=== PATIENT | female | born 1955 | race Caucasian/White ===

== ENCOUNTER 2017-05-24 18:13 | Emergency (ER) | payer MEDICARE ==
[~2017-05-24] VITALS: Ht 154.9 cm; Wt 84.1 kg
[~2017-05-24 18:13] MED LIST: /ADVA50050 IN; /CELE20CA OR; /MOXI40TA PO; /PANT40TA PO; /PRAV20TA PO; ACET50TA PO; ACET650S3 PO; ALBU0.5N NEB; ALBU20IN INH; ALBUTEROL; ASPI325T5 PO; ASPI81TA85 PO; ATOR40TA75 PO; ATOR80TA14 PO; ATROVENT; BAYE325T12 PO; BISAC5TA PO; BREO1INH INH; CELE20TA OR; COMBIN INH; COMBVENT INH; CRES20TA OR; DELTASONE PO; DUONSOL IN; ECOT325T5 OR; GLUCTAB PO; HYDR25TA6 OR; IPRA2IN INH; LEVA750T7 PO; LIPI80TA PO; LISI20TA3 PO; LISI20TA5 OR; METF-415 PO; MIRALAX PO; NICO14DI3 TD; NICO21DI4 TD; NICO21PAT EXT; OMEP20TA7 OR; PLAV1TAB2 PO; POTA20TA4 PO; POTA75TA PO; PRED10TA PO; PRED10TA2 PO; PRED20TA PO; PROAAER10 INH; TYLE325T5 PO; VITA200016 PO; VITA200019 PO; ZEST20TA8 PO; ZITH250T PO; ZYRT10CA PO
[2017-05-24] MEDS ORDERED: SYNT88TA2 PO (18:28)
[2017-05-24] MEDS ORDERED: MICR10CA PO (18:28)
[2017-05-24] MEDS ORDERED: LISI20TA3 PO (18:28)
[2017-05-24] MEDS ORDERED: CITA20TA4 PO (18:28)
[2017-05-24] MEDS ORDERED: METF500T13 PO (18:28)
[2017-05-24] MEDS ORDERED: OMEP20CA3 PO (18:28)
[2017-05-24] MEDS ORDERED: K-TA1TAB PO (18:28)
[2017-05-24] MEDS ORDERED: ONDANSETRON 4MG/2ML VIAL (J2405) IV ONE (20:15)
[2017-05-24] MEDS ORDERED: MORPHINE 4 MG/ML 1ML SYRINGE IV PRN (20:15)
[2017-05-24] MEDS ORDERED: NS 1,000 ML IV ONE ×2 (20:15→21:30)
[2017-05-24 20:53] LABS: BASO # 0.1 K/mm3 (0.0-0.2); BASO % 0.7 % (0.0-1.0); EOS # 0.4 K/mm3 (0.0-0.50); EOS % 2.8 % (0.0-3.0); LARGE UNSTAINED CELL # 0.1 K/mm3 (0.0-0.4); LARGE UNSTAINED CELL % 0.9 % (0.0-4.0); LYMPH # 3.2 K/mm3 (1.5-4.5); LYMPH % 21.8 % (24.0-44.0); MEAN CORPUSCULAR HEMOGLOBIN 28.7 pg (27.0-33.0); MEAN CORPUSCULAR HGB CONC 32.9 g/dl (32.0-36.5); MONO # 0.9 K/mm3 (0.0-0.8); MONO % 6.5 % (0.0-5.0); NEUTROPHILS # 9.5 K/mm3 (1.8-7.7); NEUTROPHILS % 67.3 % (36.0-66.0); PLATELET COUNT, AUTOMATED 315 k/mm3 (150-450); RED CELL DISTRIBUTION WIDTH 13.4 % (11.5-14.5)
[2017-05-24 21:09] LABS: ALBUMIN 3.8 GM/DL (3.2-5.2); ALBUMIN/GLOBULIN RATIO 1.06 (1.00-1.93); ALKALINE PHOSPHATASE 124 U/L (45-117); ALT/SGPT 25 U/L (12-78); ANION GAP 12 MEQ/L (8-16); AST/SGOT 15 U/L (15-37); BILIRUBIN,DIRECT < 0.1 MG/DL (0.0-0.2); BILIRUBIN,TOTAL 0.4 MG/DL (0.2-1.0); BLOOD UREA NITROGEN 17 MG/DL (7-18); CALCIUM LEVEL 9.6 MG/DL (8.8-10.2); CARBON DIOXIDE LEVEL 24 MEQ/L (21-32); CHLORIDE LEVEL 108 MEQ/L (98-107); CREATININE FOR GFR 0.83 MG/DL (0.55-1.02); GLOMERULAR FILTRATION RATE > 60.0 (>45); GLUCOSE, FASTING 95 MG/DL (80-110); POTASSIUM SERUM 4.4 MEQ/L (3.5-5.1); SODIUM LEVEL 144 MEQ/L (136-145); TOTAL PROTEIN 7.4 GM/DL (6.4-8.2)
[2017-05-24] MEDS ORDERED: ISOVUE-370 76% 100ML VIAL (Q9967) As Ordered ONE (22:13)
--- NOTE | 2017-05-24 22:50 | REPUSA ---
CT of the abdomen and pelvis with contrast Clinical statement: Pain. Technique: Multiple axial CT images were obtained from the base of the lungs through the floor of the pelvis utilizing 5 mm axial slices after administration of nonionic intravenous contrast. Coronal an d sagittal reconstructions were also obtained. Comparison: 01/17/2016. Findings: Chest: The visualized lung bases are clear. Abdomen: The liver, spleen, pancreas, kidneys, gallbladder, and adrenal glands are unremarkable. The aorta demonstrates moderate atherosclerotic calcifications, without evidence of aneurysm or dissectio n. The aortoiliac stent graft is patent. There is no evidence of abdominal lymphadenopathy or ascites . Pelvis: The bowel is unremarkable, with no obstructive or inflammatory changes. The urinary bladder i s within normal limits. The other pelvic structures appear grossly intact. There is no evidence of pe lvic lymphadenopathy or ascites. Bones: There are no suspicious osseous abnormalities seen. Impression: No acute abnormality to explain the patient's pain. Stable examination.
[2017-05-24] MEDS ORDERED: CIPR-249 PO (23:19)
[2017-05-24] MEDS ORDERED: FLAG500T PO (23:19)
[2017-05-24] MEDS ORDERED: ZOFR4TAB3 PO (23:21)
[2017-05-24] MEDS ORDERED: CIPROFLOXACIN 500 MG TAB PO ONE (23:30)
[2017-05-24] MEDS ORDERED: metroNIDAZOLE (FLAGYL) 500 MG TAB PO ONE (23:30)
[2017-05-24] MEDS ORDERED: OXYCODONE/APAP 5MG/325MG(BULK FOR ED) 1 TABLET PO ONE (23:30)
[2017-05-24 23:32] VITALS: BP 119/75
== END 2017-05-24 23:57 | disposition home or self-care (01) ==
LOC: M ED 18:13
DX: K52.9 Noninfective gastroenteritis and colitis, unspecified (principal); F17.210 Nicotine dependence, cigarettes, uncomplicated; Z79.84 Long term (current) use of oral hypoglycemic drugs; Z79.82 Long term (current) use of aspirin; Z79.899 Other long term (current) drug therapy; Z87.19 Personal history of other diseases of the digestive system

== ENCOUNTER 2017-05-25 20:12 | Inpatient (IN) | payer MEDICARE ==
[~2017-05-25] VITALS: Ht 154.9 cm; Wt 84.1 kg
[~2017-05-25 20:12] MED LIST changes: +CIPR-249 PO; +CITA20TA4 PO; +FLAG500T PO; +K-TA1TAB PO; +METF500T13 PO; +MICR10CA PO; +OMEP20CA3 PO; +SYNT88TA2 PO; +ZOFR4TAB3 PO
[2017-05-25] MEDS ORDERED: MORPHINE 4 MG/ML 1ML SYRINGE IV PRN (20:45)
[2017-05-25] MEDS ORDERED: ONDANSETRON 4MG/2ML VIAL (J2405) IV ONE (20:45)
[2017-05-25] MEDS ORDERED: NS 1,000 ML IV ONE (20:45)
[2017-05-25 21:17] LABS: BASO # 0.1 K/mm3 (0.0-0.2); BASO % 0.7 % (0.0-1.0); EOS # 0.2 K/mm3 (0.0-0.50); EOS % 1.9 % (0.0-3.0); LARGE UNSTAINED CELL # 0.2 K/mm3 (0.0-0.4); LARGE UNSTAINED CELL % 1.8 % (0.0-4.0); LYMPH # 2.5 K/mm3 (1.5-4.5); MEAN CORPUSCULAR HEMOGLOBIN 29.8 pg (27.0-33.0); MEAN CORPUSCULAR HGB CONC 35.1 g/dl (32.0-36.5); MEAN CORPUSCULAR VOLUME 84.9 fl (80.0-96.0); MONO # 0.8 K/mm3 (0.0-0.8); MONO % 7.9 % (0.0-5.0); NEUTROPHILS % 61.8 % (36.0-66.0); PLATELET COUNT, AUTOMATED 293 k/mm3 (150-450); WHITE BLOOD COUNT 9.7 K/mm3 (4.0-10.0)
[2017-05-25 21:44] LABS: ALBUMIN 3.7 GM/DL (3.2-5.2); ALBUMIN/GLOBULIN RATIO 1.09 (1.00-1.93); ALKALINE PHOSPHATASE 108 U/L (45-117); ALT/SGPT 22 U/L (12-78); ANION GAP 8 MEQ/L (8-16); AST/SGOT 14 U/L (15-37); BILIRUBIN,DIRECT 0.1 MG/DL (0.0-0.2); BILIRUBIN,TOTAL 0.5 MG/DL (0.2-1.0); BLOOD UREA NITROGEN 17 MG/DL (7-18); CALCIUM LEVEL 9.1 MG/DL (8.8-10.2); CARBON DIOXIDE LEVEL 28 MEQ/L (21-32); CHLORIDE LEVEL 106 MEQ/L (98-107); CREATININE FOR GFR 0.69 MG/DL (0.55-1.02); GLOMERULAR FILTRATION RATE > 60.0 (>45); GLUCOSE, FASTING 86 MG/DL (80-110); SODIUM LEVEL 142 MEQ/L (136-145); TOTAL PROTEIN 7.1 GM/DL (6.4-8.2)
[2017-05-25] MEDS ORDERED: ISOVUE-370 76% 100ML VIAL (Q9967) As Ordered ONE (22:25)
[2017-05-26] MEDS ORDERED: ATOR80TA59 PO (00:15)
[2017-05-26] MEDS ORDERED: CETI10TA PO (00:15)
[2017-05-26] MEDS ORDERED: CIPR-249 PO (00:19)
[2017-05-26] MEDS ORDERED: METR1TAB66 PO (00:19)
[2017-05-26] MEDS ORDERED: ZOFR4TAB3 PO (00:19)
[2017-05-26] MEDS ORDERED: COLE1TAB PO (00:19)
[2017-05-26] MEDS ORDERED: MORPHINE 2 MG/ML 1ML SYRINGE IV PRN (00:30)
[2017-05-26] MEDS ORDERED: KETOROLAC 30 MG/ML VIAL (J1885) IV PRN (00:30)
[2017-05-26] MEDS ORDERED: GLUCOSE 4 GM CHEW TABLET PO PRN (00:45)
[2017-05-26] MEDS ORDERED: ACETAMINOPHEN TAB 650MG DOSE (2X325MG) PO PRN (00:45)
[2017-05-26] MEDS ORDERED: GLUCAGON FOR INJ 1 MG VIAL (J1610) SC PRN (00:45)
[2017-05-26] MEDS ORDERED: DEXTROSE 50% 50 ML SYRINGE IV PRN (00:45)
[2017-05-26] MEDS ORDERED: ONDANSETRON 4 MG ORAL DISINTEGRATING TAB (S0181) PO PRN (00:45)
[2017-05-26] MEDS ORDERED: ALBUTEROL 90 MCG/ACT 8GM HFA INHALER INH PRN (00:45)
[2017-05-26] MEDS: HumaLOG INSULIN (NovoLOG) PER UNIT SC SCH ×5 (01:00→17:22)
[2017-05-26] MEDS: NS 1,000 ML IV SCH ×2 (01:49→11:30)
[2017-05-26] MEDS ORDERED: hydroCHLOROthiazide 25 MG TAB PO ONE (02:00)
[2017-05-26 02:10] VITALS: BP 144/66
--- NOTE | 2017-05-26 02:22 | HPEPDOC ---
General Date of Admission May 26, 2017 at 00:06 Primary Care Physician: Jonas Colon Attending Physician: STEFFI TERRY DO Chief Complaint The patient is a 62-year-old female admitted with a reason for visit of Acute Diverticulitis. History of Present Illness Patient is a 62-year-old female with past medical history significant for hypertension, diabetes, dyslipidemia, COPD, depression, common iliac stents presents to the emergency room with abdominal pain and nausea. This all started night. Patient felt soreness on her left side. Cannot get comfortable. Has been getting worse. At times it sharp and dull and achy and other times feels like a "hard pain". The pain is all the time. She has had this before. Feels like the pain when she has diverticulitis. Patient had been put on antibiotics previously. Patient has not tried any ibuprofen or Tylenol. Patient went to the emergency room yesterday. Was recommended the patient stay in the hospital. However patient did not wish to do so and went home. She was given some antibiotics, Cipro and Flagyl. Patient had taken those at home. Noted that overnight the pain got worse. It was only on right side, and now has moved across abdomen. Patient decided come back to the ER today. Patient noted that she felt more nauseous and had an episode of vomiting today. Patient first had a dry heave and then vomited once today. No blood in the vomit. Patient denies diarrhea. Admits to having a bowel movement yesterday. Usually has a bowel movement every day. Denies black or bloody stools. Today the pain seems to have moved over to the right. In the emergency room patient is receiving Zofran and morphine. Patient describes this is helping with the pain and discomfort. Patient admits to still eating and drinking at home. Although not eating as much today. Patient has had a colonoscopy before, was performed in [place]. Admitting patient today on a hospital service. Home Medications Scheduled (Lisinopril/Hydrochlorothi 20-25 mg) 1 Tab Tab, 1 TAB PO DAILY, (Reported) Aspirin (Aspir-81) 81 Mg Tab, 81 MG PO DAILY, (Reported) Atorvastatin Calcium (Atorvastatin Calcium) 80 Mg Tab, 80 MG PO QHS, (Reported) Cetirizine HCl (Cetirizine HCl) 10 Mg Tab, 10 MG PO DAILY, (Reported) Ciprofloxacin HCl (Cipro) 500 Mg Tab, 500 MG PO BID, (Reported) TO END 06/09/17 Citalopram Hydrobromide (Citalopram Hydrobromide) 20 Mg Tab, 20 MG PO DAILY, ( Reported) Clopidogrel Bisulfate (Plavix) 75 Mg Tab, 75 MG PO DAILY, (Reported) Colestipol HCl (Colestipol HCl) 1 Gm Tab, 1 GM PO DAILY, (Reported) Fluticasone/Vilanterol (Breo Ellipta 100-25 Mcg/INH) 1 Inh Inh, 1 PUFF INH DAILY , (Reported) Levothyroxine Sodium (Synthroid) 88 Mcg Tab, 88 MCG PO DAILY, (Reported) Metformin Hydrochloride (Metformin HCl) 500 Mg Tab, 500 MG PO BID, (Reported) holding due to dye from a procedure Metronidazole (Metronidazole) 500 Mg Tab, 500 MG PO Q8H, (Reported) TO END 06/05/17 Omeprazole (Omeprazole) 20 Mg Cap, 20 MG PO DAILY, (Reported) Potassium Chloride (K-Tab) 20 Meq Tab, 20 MEQ PO DAILY, (Reported) Scheduled PRN Albuterol Sulfate (Proair Hfa) 108 Mcg/Act Aer, 2 PUFFS INH Q4H PRN for SHORTNESS OF BREATH, (Reported) Ondansetron (Zofran Odt) 4 Mg Tab, 4 MG PO Q4H PRN for NAUSEA, (Reported) Allergies Coded Allergies: No Known Drug Allergy (Verified Allergy, Unknown, 12/12/12) Past Medical History Medical History Hypertension Diabetes Dyslipidemia COPD Arthritis Depression Surgical History Common iliac stents bilaterally, placed in 2014 Hysterectomy Bunions on feet removed bilaterally Right breast cancer removed Family History Father: , [place] Social History Patient's is a smoker. Smokes 1 pack a day for 45 years. Denies alcohol use. Denies illegal or illicit drugs. Is currently disabled. 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 Disabled due to back pain. Patient is for 40 years. Has a cat at home, named Karuna. Review of Symptoms ENT: Denies: Sinus Congestion Other systems Gen.: No fevers or chills Head: Headache on right side of head this morning, rubbed it and went away. Eyes: Denies vision changes no blurry vision or double vision. Nose: Denies rhinorrhea. Ears: Denies hearing changes. Throat: Denies painful or difficulty swallowing. Cardiovascular: Denies chest pain. Respiratory: Denies shortness of breath. Admits to chronic cough all the time. Abdomen: Belly pain. HPI. : Denies dysuria or frequency. MSK:Denies weakness. Neuro: No numbness. Psych:Admits to history of depression. Physical Examination General Exam: Positive: Alert, Cooperative, No Acute Distress Eye Exam: Positive: PERRLA, Negative: Conjunctiva & lids normal, EOMI, Sclera icteric ENT Exam: Positive: Atraumatic, Pharynx Normal, Tongue Midline, Nares Patent Neck Exam: Positive: Supple, Negative: JVD, thyromegaly Chest Exam: Positive: Clear to auscultation, Normal air movement Heart Exam: Positive: Rate Normal, Regular Rhythm, Normal S1, Normal S2, Negative: Tachycardic, Bradycardic, Murmurs, Rubs Abdomen Exam: Positive: Normal bowel sounds, Soft, Tenderness (left upper lower quadrant. Tenderness to palpation.), Other (no guarding or rigidity.), Negative: Hepatospenomegaly Extremity Exam: Positive: Normal pulses (radial pulses 2 out of 4 bilaterally.) , Negative: Clubbing, Cyanosis, Edema Skin Exam: Positive: Nl turgor and temperature, Negative: Rash, Breakdown, Lesion, Pruritus Neuro Exam: Positive: Normal Gait, Normal Speech, Strength at 5/5 X4 ext ( upper and lower extremity.) Psych Exam: Positive: Mental status NL, Mood NL Vital Signs Vital Signs Date Time Temp Pulse Resp B/P (MAP) Pulse Ox O2 Delivery O2 Flow Rate FiO2 05/25/17 23:29 62 90 05/25/17 23:15 138/80 (99) 05/25/17 22:10 18 05/25/17 20:13 97.1 Room Air Laboratory Data Labs 24H Laboratory Tests 2 05/25/17 21:05: White Blood Count 9.7, Red Blood Count 4.95, Hemoglobin 14.8, Hematocrit 42.0, Mean Corpuscular Volume 84.9, Mean Corpuscular Hemoglobin 29.8, Mean Corpuscular Hemoglobin Concent 35.1, Red Cell Distribution Width 13.0, Platelet Count 293, Neutrophils (%) (Auto) 61.8, Lymphocytes (%) (Auto) 26.0, Monocytes ( %) (Auto) 7.9H, Eosinophils (%) (Auto) 1.9, Basophils (%) (Auto) 0.7, Neutrophils # (Auto) 6.0, Lymphocytes # (Auto) 2.5, Monocytes # (Auto) 0.8, Eosinophils # (Auto) 0.2, Basophils # (Auto) 0.1, Large Unclassified Cells % 1.8 , Large Unclassified Cells # 0.2, Anion Gap 8, Glomerular Filtration Rate > 60.0 , Calcium Level 9.1, Aspartate Amino Transf (AST/SGOT) 14L, Alanine Aminotransferase (ALT/SGPT) 22, Alkaline Phosphatase 108, Total Bilirubin 0.5, Direct Bilirubin 0.1, Total Creatine Kinase 87, Creatine Kinase MB 1.2, Creatine Kinase MB Relative Index 1.37, Troponin I < 0.02, Total Protein 7.1, Albumin 3.7, Albumin/Globulin Ratio 1.09, Lipase 123 05/25/17 21:10: Urine Appearance CLEAR, Urine Color YELLOW, Urine pH 6.0, Urine Specific [place] 1.013, Urine Protein NEGATIVE, Urine Glucose (UA) NEGATIVE, Urine Ketones NEGATIVE, Urine Urobilinogen 0.2, Urine Bilirubin NEGATIVE, Urine Leukocyte Esterase TRACEH, Urine Blood NEGATIVE, Urine Nitrite NEGATIVE, Urine WBC (Auto) 1, Urine RBC (Auto) 1, Urine Hyaline Casts (Auto) 0, Urine Bacteria ( Auto) NEGATIVE, Urine Squamous Epithelial Cells 0, Urine Sperm (Auto) , Lactic Acid Level 1.4 CBC/BMP Laboratory Tests 05/25/17 21:05 Red Blood Count 4.95, Mean Corpuscular Volume 84.9, Mean Corpuscular Hemoglobin 29.8, Mean Corpuscular Hemoglobin Concent 35.1, Red Cell Distribution Width 13.0 , Neutrophils (%) (Auto) 61.8, Lymphocytes (%) (Auto) 26.0, Monocytes (%) (Auto ) 7.9 H, Eosinophils (%) (Auto) 1.9, Basophils (%) (Auto) 0.7, Neutrophils # ( Auto) 6.0, Lymphocytes # (Auto) 2.5, Monocytes # (Auto) 0.8, Eosinophils # (Auto ) 0.2, Basophils # (Auto) 0.1 Microbiology Microbiology 05/25/17 Blood Culture, Received Pending 05/25/17 Blood Culture, Received Pending 05/25/17 Urine Culture, Received Pending Assessment/Plan Diverticulitis Patient's abdominal pain is most likely secondary to this. Patient had mild leukocytosis yesterday. White count today is normal. Lactic acid 1.4. Urinalysis revealed trace leukocyte esterase and no bacteria. CT scan today of abdomen and pelvis revealed acute diverticulitis involving the distal descending and proximal sigmoid colon's. There is mural thickening and pericolic inflammation stranding surrounding enhancing diverticulum. No evidence of bowel obstruction or perforation. Continuing the patient on Cipro and Flagyl IV. Patient will be nothing by mouth at this time for bowel rest. Starting IV fluids , 125 mL an hour normal saline. Repeating labs in the morning. Monitor patient's clinical status and vitals. Currently afebrile. Diabetes Patient has diabetes and takes metformin. Patient did not take metformin this morning. Holding metformin. Starting patient on this protocol every 6 hours. We'll be monitoring patient's glucose with fingersticks every 6 hours. Hypoglycemia protocol. We will start long-term insulin once patient has advanced her diet. Hypertension Monitoring patient's blood pressure. Continue patient on home dose of lisinopril and hydrochlorothiazide. At home patient takes a combination pill. Dyslipidemia Continue patient's statin. Patient also takes Colestipol at home, not available on formulary here. COPD Continue patient's rescue inhaler as needed. Arthritis Prescribing patient Tylenol every 4 hours as needed. Depression Continue home medications citalopram. Common Iliac stents Continue patient's aspirin 81 mg and Plavix. Plan / VTE VTE Prophylaxis Ordered?: Yes (teds. Lovenox.) Plan Plan Patient will be admitted to [facility]. Patient will be currently on nothing by mouth diet. Patient will followed by Dr. Gerber on 05/26/2017. GME ATTESTATION GME ATTESTATION My preceptor for this patient encounter was physically present in the building during the encounter and was fully available. As needed, all aspects of the patient interview, examination, medical decision making process, and medical care plan development were reviewed and approved by the preceptor. Preceptor is aware and concurs with the plan as stated in the body of this note and will attest to such by his/her cosignature. NENA HOLLINS DO May 26, 2017 02:01
[2017-05-26] MEDS: CIPROFLOXACIN 400 MG in APPROPRIATE DILUENT 1 EA IV SCH ×2 (02:47→13:54)
[2017-05-26] MEDS: metroNIDAZOLE 500 MG in APPROPRIATE DILUENT 1 EA IV SCH ×3 (04:01→20:35)
[2017-05-26] MEDS: ATORVASTATIN 20 MG TAB PO SCH ×2 (04:01→20:32)
[2017-05-26] MEDS: OMEPRAZOLE 20 MG CAP PO SCH (09:24)
[2017-05-26] MEDS: CLOPIDOGREL 75 MG TAB PO SCH (09:24)
[2017-05-26] MEDS: ENOXAPARIN 40 MG/0.4 ML SYRINGE (J1650) SC SCH (09:24)
[2017-05-26] MEDS: ASPIRIN 81 MG ENTERIC TAB PO SCH (09:25)
[2017-05-26] MEDS: LEVOTHYROXINE 88MCG TABLET (0.088 MG) PO SCH (09:25)
[2017-05-26] MEDS: LISINOPRIL 20 MG TAB PO SCH (09:25)
[2017-05-26] MEDS: CitaloPRAM (CeleXA) 20 MG TAB PO SCH (09:25)
--- NOTE | 2017-05-26 11:43 | IPNPDOC ---
Date Seen The patient was seen on 05/26/17. Progress Note Hospitalist Progress Note Subjective: Patient states that she feels better, is not nauseated or vomiting, and that her abdominal pain is improving Objective: Physical Exam: Vitals: Vital Sign - Last 24 Hours 05/25/17 05/25/17 05/25/17 05/25/17 20:13 21:25 21:57 21:58 Temp 97.1 Pulse 79 64 62 Resp 18 18 B/P (MAP) 128/72 (90) Pulse Ox 90 87 96 O2 Delivery Room Air 05/25/17 05/25/17 05/25/17 05/25/17 21:58 21:59 22:02 22:10 Pulse 62 62 Resp 18 18 B/P (MAP) 128/71 (90) Pulse Ox 96 97 05/25/17 05/25/17 05/25/17 05/25/17 22:14 22:15 22:29 22:44 Pulse 62 62 66 B/P (MAP) 149/90 (109) Pulse Ox 92 93 82 05/25/17 05/25/17 05/25/17 05/25/17 22:45 22:59 23:14 23:15 Pulse 64 68 B/P (MAP) 127/65 (85) 138/80 (99) Pulse Ox 92 90 05/25/17 05/25/17 05/25/17 05/25/17 23:29 23:44 23:45 23:59 Pulse 62 64 62 B/P (MAP) 171/83 (112) Pulse Ox 90 96 96 05/26/17 05/26/17 05/26/17 05/26/17 00:14 00:15 00:29 00:44 Pulse 64 66 64 B/P (MAP) 160/85 (110) Pulse Ox 89 94 93 05/26/17 05/26/17 05/26/17 05/26/17 00:45 00:59 01:14 01:15 Pulse 62 60 B/P (MAP) 136/77 (96) 128/71 (90) Pulse Ox 93 92 05/26/17 05/26/17 05/26/17 05/26/17 01:29 01:44 02:10 07:56 Temp 97.7 Pulse 62 62 63 Resp 14 B/P (MAP) 144/66 (92) Pulse Ox 90 89 96 O2 Delivery Room Air Nasal Cannula O2 Flow Rate 2.0 05/26/17 09:25 B/P (MAP) 144/66 General: Awake, Alert, no acute distress HEENT: Normocephalic, atraumatic, extraocular movements intact CV: Regular rate and rhythm, no murmurs rubs or gallops Lungs: Clear to auscultation bilaterally Abd: Soft, nondistended, mild tenderness to palpation in the left lower quadrant Extremities: No edema Neuro: Alert And oriented 3, normal speech Psych: Normal mood and affect Labs and Imaging: Laboratory Tests 05/25/17 21:05 Red Blood Count 4.95, Mean Corpuscular Volume 84.9, Mean Corpuscular Hemoglobin 29.8, Mean Corpuscular Hemoglobin Concent 35.1, Red Cell Distribution Width 13.0 , Neutrophils (%) (Auto) 61.8, Lymphocytes (%) (Auto) 26.0, Monocytes (%) (Auto ) 7.9 H, Eosinophils (%) (Auto) 1.9, Basophils (%) (Auto) 0.7, Neutrophils # ( Auto) 6.0, Lymphocytes # (Auto) 2.5, Monocytes # (Auto) 0.8, Eosinophils # (Auto ) 0.2, Basophils # (Auto) 0.1 Assessment and Plan: 62-year-old female with hypertension, diabetes mellitus type 2, hyperlipidemia, COPD, depression, common iliac stents, hypothyroidism, history of breast cancer status post surgical excision who presented to the emergency department with abdominal pain and nausea. Patient was seen in the emergency department on the day prior to admission and although admission was recommended at that time, the patient declined and was sent home on Cipro and Flagyl. The patient returned when she began vomiting. She is admitted with diverticulitis. 1. Acute diverticulitis: The patient is afebrile with a normal white count, and CT of the abdomen and pelvis shows uncomplicated acute diverticulitis. Blood and urine cultures are pending. We'll continue the patient on Cipro and Flagyl. We will also continue her on IV fluids. Since she is no longer vomiting, we will advance her diet as tolerated. 2. Hypothyroidism: Continue home Synthroid 3. Hypertension: Continue home CALDERON inhibitor and HCTZ 4. History of common iliac stents, hyperlipidemia: Continue home aspirin and statin, as well as Plavix. 5. COPD: Currently controlled. Continue as needed albuterol. 6. Depression: Continue home Celexa. 7. Diabetes mellitus type 2: A1c is 6.1. Currently holding home metformin. Sliding scale insulin while in-house. DVT prophylaxis: Lovenox Dispo: pending ability to tolerate a diet and oral antibiotics, potentially home in the next 24 hours. VS, I&O, 24H, Fishbone Vital Signs/I&O Vital Signs Date Time Temp Pulse Resp B/P (MAP) Pulse Ox O2 Delivery O2 Flow Rate FiO2 05/26/17 09:25 144/66 05/26/17 07:56 Nasal Cannula 2.0 05/26/17 02:10 97.7 63 14 96 Laboratory Data 24H LABS Laboratory Tests 2 05/25/17 21:05: White Blood Count 9.7, Red Blood Count 4.95, Hemoglobin 14.8, Hematocrit 42.0, Mean Corpuscular Volume 84.9, Mean Corpuscular Hemoglobin 29.8, Mean Corpuscular Hemoglobin Concent 35.1, Red Cell Distribution Width 13.0, Platelet Count 293, Neutrophils (%) (Auto) 61.8, Lymphocytes (%) (Auto) 26.0, Monocytes ( %) (Auto) 7.9H, Eosinophils (%) (Auto) 1.9, Basophils (%) (Auto) 0.7, Neutrophils # (Auto) 6.0, Lymphocytes # (Auto) 2.5, Monocytes # (Auto) 0.8, Eosinophils # (Auto) 0.2, Basophils # (Auto) 0.1, Large Unclassified Cells % 1.8 , Large Unclassified Cells # 0.2, Anion Gap 8, Glomerular Filtration Rate > 60.0 , Calcium Level 9.1, Aspartate Amino Transf (AST/SGOT) 14L, Alanine Aminotransferase (ALT/SGPT) 22, Alkaline Phosphatase 108, Total Bilirubin 0.5, Direct Bilirubin 0.1, Total Creatine Kinase 87, Creatine Kinase MB 1.2, Creatine Kinase MB Relative Index 1.37, Troponin I < 0.02, Total Protein 7.1, Albumin 3.7, Albumin/Globulin Ratio 1.09, Lipase 123 05/25/17 21:10: Urine Appearance CLEAR, Urine Color YELLOW, Urine pH 6.0, Urine Specific [place] 1.013, Urine Protein NEGATIVE, Urine Glucose (UA) NEGATIVE, Urine Ketones NEGATIVE, Urine Urobilinogen 0.2, Urine Bilirubin NEGATIVE, Urine Leukocyte Esterase TRACEH, Urine Blood NEGATIVE, Urine Nitrite NEGATIVE, Urine WBC (Auto) 1, Urine RBC (Auto) 1, Urine Hyaline Casts (Auto) 0, Urine Bacteria ( Auto) NEGATIVE, Urine Squamous Epithelial Cells 0, Urine Sperm (Auto) , Lactic Acid Level 1.4 05/26/17 01:47: Bedside Glucose (Misc Panel) 95 05/26/17 05:23: Bedside Glucose (Misc Panel) 91 05/26/17 06:18: Estimated Mean Plasma Glucose 128H, Hemoglobin A1c 6.1, Thyroid Stimulating Hormone (TSH) 0.299L 05/26/17 11:24: Bedside Glucose (Misc Panel) 105 CBC/BMP Laboratory Tests 05/25/17 21:05 Red Blood Count 4.95, Mean Corpuscular Volume 84.9, Mean Corpuscular Hemoglobin 29.8, Mean Corpuscular Hemoglobin Concent 35.1, Red Cell Distribution Width 13.0 , Neutrophils (%) (Auto) 61.8, Lymphocytes (%) (Auto) 26.0, Monocytes (%) (Auto ) 7.9 H, Eosinophils (%) (Auto) 1.9, Basophils (%) (Auto) 0.7, Neutrophils # ( Auto) 6.0, Lymphocytes # (Auto) 2.5, Monocytes # (Auto) 0.8, Eosinophils # (Auto ) 0.2, Basophils # (Auto) 0.1 Microbiology Microbiology 05/25/17 Blood Culture, Received Pending 05/25/17 Blood Culture, Received Pending 05/25/17 Urine Culture, Received Pending MICHAELLE CAZARES May 26, 2017 11:43
--- NOTE | 2017-05-26 13:52 | REP ---
Clinical: Left lower quadrant pain. Technique: Axial contrast enhanced images from the lung bases to the pubic symphysis using 100 ml Isovue 370 intravenous contrast material with coronal and sagittal re-formations. Findings: Acute diverticulitis involving the distal descending/proximal sigmoid colon is appreciated with mural thickening and pericolonic inflammatory stranding surrounding enhancing diverticulum (images 77 - 87). There is no evidence for bowel obstruction, free fluid/drainable collection, or free air to suggest perforation. The remainder of the small and large bowel is without further acute inflammatory process. Liver, spleen, pancreas, gallbladder, bilateral adrenal glands and kidneys are normal. Pelvis demonstrates normal bladder and evidence for prior hysterectomy. No ascites. No significant adenopathy. Atherosclerotic changes to the aorta branch vessels noted without aneurysm. Musculoskeletal structures demonstrate degenerative changes. Lung bases demonstrate mild dependent changes. Impression: Acute diverticulitis involving the distal descending/proximal sigmoid colon. No bowel obstruction, perforation, drainable collection/abscess. Signed by Rubin Dodge MD 05/26/2017 01:44 P
[2017-05-26 14:00] VITALS: BP 123/81
[2017-05-26] MEDS ORDERED: HumaLOG INSULIN (NovoLOG) PER UNIT SC SCH (21:00)
[2017-05-26 22:00] VITALS: BP 140/72
[2017-05-27] MEDS: NS 1,000 ML IV SCH (01:06)
[2017-05-27] MEDS: CIPROFLOXACIN 400 MG in APPROPRIATE DILUENT 1 EA IV SCH (01:06)
[2017-05-27] MEDS: metroNIDAZOLE 500 MG in APPROPRIATE DILUENT 1 EA IV SCH (04:11)
[2017-05-27 06:00] VITALS: BP 159/80
[2017-05-27] MEDS ORDERED: CIPROFLOXACIN 500 MG TAB PO SCH (06:00)
[2017-05-27 07:13] LABS: BASO # 0.1 K/mm3 (0.0-0.2); EOS # 0.2 K/mm3 (0.0-0.50); EOS % 3.3 % (0.0-3.0); LARGE UNSTAINED CELL # 0.1 K/mm3 (0.0-0.4); LARGE UNSTAINED CELL % 1.6 % (0.0-4.0); LYMPH # 2.3 K/mm3 (1.5-4.5); LYMPH % 28.9 % (24.0-44.0); MONO # 0.6 K/mm3 (0.0-0.8); MONO % 7.6 % (0.0-5.0); NEUTROPHILS # 4.3 K/mm3 (1.8-7.7); NEUTROPHILS % 57.5 % (36.0-66.0); PLATELET COUNT, AUTOMATED 264 k/mm3 (150-450); RED CELL DISTRIBUTION WIDTH 13.3 % (11.5-14.5); WHITE BLOOD COUNT 7.5 K/mm3 (4.0-10.0)
[2017-05-27 07:27] LABS: ANION GAP 9 MEQ/L (8-16); BLOOD UREA NITROGEN 11 MG/DL (7-18); CALCIUM LEVEL 9.5 MG/DL (8.8-10.2); CARBON DIOXIDE LEVEL 27 MEQ/L (21-32); CHLORIDE LEVEL 108 MEQ/L (98-107); CREATININE FOR GFR 0.66 MG/DL (0.55-1.02); FREE T4 1.19 NG/DL (0.76-1.46); GLOMERULAR FILTRATION RATE > 60.0 (>45); GLUCOSE, FASTING 103 MG/DL (80-110); POTASSIUM SERUM 4.1 MEQ/L (3.5-5.1); SODIUM LEVEL 144 MEQ/L (136-145)
[2017-05-27] MEDS: HumaLOG INSULIN (NovoLOG) PER UNIT SC SCH ×2 (07:30→12:00)
[2017-05-27] MEDS ORDERED: hydroCHLOROthiazide 25 MG TAB PO SCH (09:00)
[2017-05-27 09:02] VITALS: BP 159/80
[2017-05-27] MEDS: LEVOTHYROXINE 88MCG TABLET (0.088 MG) PO SCH (09:02)
[2017-05-27] MEDS: OMEPRAZOLE 20 MG CAP PO SCH (09:02)
[2017-05-27] MEDS: CLOPIDOGREL 75 MG TAB PO SCH (09:02)
[2017-05-27] MEDS: LISINOPRIL 20 MG TAB PO SCH (09:02)
[2017-05-27] MEDS: CitaloPRAM (CeleXA) 20 MG TAB PO SCH (09:02)
[2017-05-27] MEDS: ENOXAPARIN 40 MG/0.4 ML SYRINGE (J1650) SC SCH (09:03)
[2017-05-27] MEDS: ASPIRIN 81 MG ENTERIC TAB PO SCH (09:09)
[2017-05-27] MEDS ORDERED: CITA20TA4 PO (11:59)
[2017-05-27] MEDS ORDERED: INFLUENZA QUADRIVALENT PF VACCINE 0.5ML SYRINGE (90686) IM ONE (13:00)
--- NOTE | 2017-05-27 13:12 | DS.PDOC ---
Discharge Summary General Date of Admission May 26, 2017 at 00:06 Date of Discharge 05/27/2017 Discharge Summary DISCHARGE SUMMARY DATE OF ADMISSION: 05/26/2017 DATE OF DISCHARGE: 05/27/2017 PRIMARY CARE PHYSICIAN: DANK Berger DISCHARGE DIAGNOS(E)S: Acute diverticulitis HPI & HOSPITAL COURSE: 62-year-old female with hypertension, diabetes mellitus type 2, hyperlipidemia, COPD, depression, common iliac stents, hypothyroidism, history of breast cancer status post surgical excision who presented to the emergency department with abdominal pain and nausea. Patient was seen in the emergency department on the day prior to admission and although admission was recommended at that time, the patient declined and was sent home on Cipro and Flagyl. The patient returned when she began vomiting. She is admitted with diverticulitis. 1. Acute diverticulitis: The patient is afebrile with a normal white count, and CT of the abdomen and pelvis shows uncomplicated acute diverticulitis. Vomiting has resolved and she is tolerating a regular diet. Blood cultures have no growth to date and urine culture is negative. We'll continue the patient on Cipro and Flagyl. 2. Hypothyroidism: Continue home Synthroid 3. Hypertension: Continue home CALDERON inhibitor and HCTZ 4. History of common iliac stents, hyperlipidemia: Continue home aspirin and statin, as well as Plavix. 5. COPD: Currently controlled. Continue as needed albuterol. 6. Depression: Hold home Celexa until she finishes antibiotics. 7. Diabetes mellitus type 2: A1c is 6.1. Currently holding home metformin but will resume at discharge. Sliding scale insulin while in-house. DVT prophylaxis: Lovenox PHYSICAL EXAMINATION ON DISCHARGE: VITAL SIGNS: Vital Signs Date Time Temp Pulse Resp B/P (MAP) Pulse Ox O2 Delivery O2 Flow Rate FiO2 05/27/17 09:02 159/80 05/27/17 06:00 96.5 64 18 95 Room Air 05/26/17 20:35 2.0 General: Awake, Alert, no acute distress HEENT: Normocephalic, atraumatic, extraocular movements intact CV: Regular rate and rhythm, no murmurs rubs or gallops Lungs: Clear to auscultation bilaterally Abd: Soft, nondistended, mild tenderness to palpation in the left lower quadrant Extremities: No edema Neuro: Alert And oriented 3, normal speech Psych: Normal mood and affect DISPOSITION: Home DISCHARGE INSTRUCTIONS: PCP within one week. If symptoms return, or if you experience worsening of your symptoms, please call your doctor or return to the emergency department. ITEMS THAT NEED OUTPATIENT FOLLOWUP: None Patient was seen and examined by me on the day of discharge, and I spent a total time of less than 30 minutes on this discharge. Vital Signs/I&Os Vital Signs Date Time Temp Pulse Resp B/P (MAP) Pulse Ox O2 Delivery O2 Flow Rate FiO2 05/27/17 09:02 159/80 05/27/17 06:00 96.5 64 18 95 Room Air 05/26/17 20:35 2.0 I&O- Last 24 Hours up to 6 AM 05/27/17 06:00 Intake Total 1180 ml Output Total 1200 ml Balance -20 ml Laboratory Data Labs 24H Laboratory Tests 2 05/26/17 17:01: Bedside Glucose (Misc Panel) 134H 05/26/17 21:59: Bedside Glucose (Misc Panel) 136H 05/27/17 06:25: White Blood Count 7.5, Red Blood Count 4.67, Hemoglobin 13.6, Hematocrit 41.1, Mean Corpuscular Volume 88.0, Mean Corpuscular Hemoglobin 29.0, Mean Corpuscular Hemoglobin Concent 33.0, Red Cell Distribution Width 13.3, Platelet Count 264, Neutrophils (%) (Auto) 57.5, Lymphocytes (%) (Auto) 28.9, Monocytes ( %) (Auto) 7.6H, Eosinophils (%) (Auto) 3.3H, Basophils (%) (Auto) 1.0, Neutrophils # (Auto) 4.3, Lymphocytes # (Auto) 2.3, Monocytes # (Auto) 0.6, Eosinophils # (Auto) 0.2, Basophils # (Auto) 0.1, Large Unclassified Cells % 1.6 , Large Unclassified Cells # 0.1, Anion Gap 9, Glomerular Filtration Rate > 60.0 , Blood Urea Nitrogen 11, Creatinine 0.66, Sodium Level 144, Potassium Level 4.1 , Chloride Level 108H, Carbon Dioxide Level 27, Calcium Level 9.5, Magnesium Level 2.0, Free Thyroxine 1.19 05/27/17 11:57: Bedside Glucose (Misc Panel) 89 CBC/BMP Laboratory Tests 05/27/17 06:25 Red Blood Count 4.67, Mean Corpuscular Volume 88.0, Mean Corpuscular Hemoglobin 29.0, Mean Corpuscular Hemoglobin Concent 33.0, Red Cell Distribution Width 13.3 , Neutrophils (%) (Auto) 57.5, Lymphocytes (%) (Auto) 28.9, Monocytes (%) (Auto ) 7.6 H, Eosinophils (%) (Auto) 3.3 H, Basophils (%) (Auto) 1.0, Neutrophils # ( Auto) 4.3, Lymphocytes # (Auto) 2.3, Monocytes # (Auto) 0.6, Eosinophils # (Auto ) 0.2, Basophils # (Auto) 0.1, Calcium Level 9.5 FSBS Laboratory Tests Test 05/26/17 17:01 05/26/17 21:59 05/27/17 11:57 Range/Units Bedside Glucose (Misc Panel) 134 136 89 80-115 MG/DL Microbiology Microbiology 05/25/17 Blood Culture - Preliminary, Resulted No growth after 24 hours . All specim... 05/25/17 Blood Culture - Preliminary, Resulted No growth after 24 hours . All specim... 05/25/17 Urine Culture - Final, Complete Discharge Medications Scheduled (Lisinopril/Hydrochlorothi 20-25 mg) 1 Tab Tab, 1 TAB PO DAILY, (Reported) Aspirin (Aspir-81) 81 Mg Tab, 81 MG PO DAILY, (Reported) Atorvastatin Calcium (Atorvastatin Calcium) 80 Mg Tab, 80 MG PO QHS, (Reported) Cetirizine HCl (Cetirizine HCl) 10 Mg Tab, 10 MG PO DAILY, (Reported) Ciprofloxacin HCl (Cipro) 500 Mg Tab, 500 MG PO BID, (Reported) TO END 06/09/17 Citalopram Hydrobromide (Citalopram Hydrobromide) 20 Mg Tab, 20 MG PO DAILY Hold off on taking this until you finish your antibiotics Clopidogrel Bisulfate (Plavix) 75 Mg Tab, 75 MG PO DAILY, (Reported) Colestipol HCl (Colestipol HCl) 1 Gm Tab, 1 GM PO DAILY, (Reported) Fluticasone/Vilanterol (Breo Ellipta 100-25 Mcg/INH) 1 Inh Inh, 1 PUFF INH DAILY , (Reported) Levothyroxine Sodium (Synthroid) 88 Mcg Tab, 88 MCG PO DAILY, (Reported) Metformin Hydrochloride (Metformin HCl) 500 Mg Tab, 500 MG PO BID, (Reported) holding due to dye from a procedure Metronidazole (Metronidazole) 500 Mg Tab, 500 MG PO Q8H, (Reported) TO END 06/05/17 Omeprazole (Omeprazole) 20 Mg Cap, 20 MG PO DAILY, (Reported) Potassium Chloride (K-Tab) 20 Meq Tab, 20 MEQ PO DAILY, (Reported) Scheduled PRN Albuterol Sulfate (Proair Hfa) 108 Mcg/Act Aer, 2 PUFFS INH Q4H PRN for SHORTNESS OF BREATH, (Reported) Ondansetron (Zofran Odt) 4 Mg Tab, 4 MG PO Q4H PRN for NAUSEA, (Reported) Allergies Coded Allergies: No Known Drug Allergy (Verified Allergy, Unknown, 12/12/12) MICHAELLE CAZARES May 27, 2017 13:12
[2017-05-27] MEDS ORDERED: metroNIDAZOLE (FLAGYL) 500 MG TAB PO SCH (14:00)
== END 2017-05-27 13:45 | disposition home or self-care (01) | DRG 392 ==
LOC: M ED 20:12 → M ED INP 05-26 00:06 → M MS5PR 05-26 02:25
PROVIDERS: ADMIT Internal Medicine; ATTEND Hospitalist
DX: K57.32 Diverticulitis of large intestine without perforation or abscess without bleeding (principal); E11.9 Type 2 diabetes mellitus without complications; I10 Essential (primary) hypertension; J44.9 Chronic obstructive pulmonary disease, unspecified; E78.5 Hyperlipidemia, unspecified; E03.9 Hypothyroidism, unspecified; Z85.3 Personal history of malignant neoplasm of breast; F32.9 Major depressive disorder, single episode, unspecified; Z79.82 Long term (current) use of aspirin; Z79.899 Other long term (current) drug therapy; F17.200 Nicotine dependence, unspecified, uncomplicated; M19.90 Unspecified osteoarthritis, unspecified site

== ENCOUNTER 2017-06-03 11:37 | Emergency (ER) | payer MEDICARE ==
[~2017-06-03] VITALS: Ht 154.9 cm; Wt 84.1 kg
[~2017-06-03 11:37] MED LIST changes: +ATOR80TA59 PO; +CETI10TA PO; +COLE1TAB PO; +METR1TAB66 PO
[2017-06-03] MEDS ORDERED: NS 500 ML IV ONE (15:00)
[2017-06-03] MEDS ORDERED: PERCOCET 5MG/325MG TAB PO ONE (15:00)
[2017-06-03] MEDS ORDERED: GASTROGRAFIN SOLUTION 30ML (Q9963) As Ordered ONE (15:34)
[2017-06-03 16:13] LABS: BASO # 0.1 10^3/uL (0.0-0.2); BASO % 0.9 % (0.0-1.0); EOS # 0.2 10^3/uL (0.0-0.50); EOS % 1.5 % (0.0-3.0); LYMPH # 2.9 10^3/uL (1.5-4.5); LYMPH % 25.8 % (24.0-44.0); MEAN CORPUSCULAR HEMOGLOBIN 28.7 pg (27.0-33.0); MEAN CORPUSCULAR HGB CONC 33.7 g/dl (32.0-36.5); MONO # 1.1 10^3/uL (0.0-0.8); NEUTROPHILS # 6.9 10^3/uL (1.8-7.7); NEUTROPHILS % 60.8 % (36.0-66.0); PLATELET COUNT, AUTOMATED 352 10^3/uL (150-450); RED CELL DISTRIBUTION WIDTH 13.9 % (11.5-14.5); WHITE BLOOD COUNT 11.4 10^3/uL (4.0-10.0)
[2017-06-03 16:37] LABS: ERYTHROCYTE SEDIMENTATION RATE 11 mm/hr (0-30)
[2017-06-03 16:39] LABS: ALBUMIN 4.1 GM/DL (3.2-5.2); ALBUMIN/GLOBULIN RATIO 1.17 (1.00-1.93); ALKALINE PHOSPHATASE 108 U/L (45-117); ALT/SGPT 58 U/L (12-78); AMYLASE 37 U/L (25-115); ANION GAP 9 MEQ/L (8-16); AST/SGOT 36 U/L (15-37); BILIRUBIN,DIRECT 0.2 MG/DL (0.0-0.2); BILIRUBIN,TOTAL 0.6 MG/DL (0.2-1.0); BLOOD UREA NITROGEN 13 MG/DL (7-18); CALCIUM LEVEL 9.3 MG/DL (8.8-10.2); CARBON DIOXIDE LEVEL 25 MEQ/L (21-32); CHLORIDE LEVEL 100 MEQ/L (98-107); CREATININE FOR GFR 0.65 MG/DL (0.55-1.02); GLOMERULAR FILTRATION RATE > 60.0 (>45); GLUCOSE, FASTING 92 MG/DL (80-110); POTASSIUM SERUM 3.8 MEQ/L (3.5-5.1); SODIUM LEVEL 134 MEQ/L (136-145); TOTAL PROTEIN 7.6 GM/DL (6.4-8.2)
[2017-06-03] MEDS ORDERED: FLAG500T PO (18:16)
[2017-06-03] MEDS ORDERED: CIPR-249 PO (18:16)
[2017-06-03 18:27] VITALS: BP 143/79
--- NOTE | 2017-06-04 05:58 | REP ---
CT ABDOMEN AND PELVIS WITHOUT CONTRAST: HISTORY: Diverticulitis. COMPARISON: 05/25/2017. The liver, gallbladder, pancreas, spleen, adrenal glands and kidneys are normal in appearance. There is no mass, adenopathy or free fluid. Diverticula are present in the descending and sigmoid colon. There is minimal residual stranding in the pericolonic fat involving the distal descending and proximal sigmoid colon consistent with diverticulitis. The patient is status post hysterectomy. The urinary bladder is normal in appearance. Atherosclerotic calcification is present in the abdominal aorta and common iliac arteries. IMPRESSION: The above findings are consistent with residual diverticulitis involving the distal descending and proximal sigmoid colon that are decreased compared to the previous study. Signed by Vincent Crystal MD 06/04/2017 08:47 A
== END 2017-06-03 18:31 | disposition home or self-care (01) ==
LOC: M ED 11:37
DX: K57.30 Diverticulosis of large intestine without perforation or abscess without bleeding (principal); E11.9 Type 2 diabetes mellitus without complications; F41.9 Anxiety disorder, unspecified; Z85.3 Personal history of malignant neoplasm of breast; F17.200 Nicotine dependence, unspecified, uncomplicated; Z79.82 Long term (current) use of aspirin; Z79.899 Other long term (current) drug therapy; Z79.84 Long term (current) use of oral hypoglycemic drugs; Z79.01 Long term (current) use of anticoagulants
CPT/HCPCS: 74176; 80048; 80076; 81001; 82150; 83605; 83690; 85025; 85652; 86140; 96360; 96361; 99283; Q9963

== ENCOUNTER 2017-07-29 03:33 | Observation (INO) | payer MEDICARE ==
[~2017-07-29] VITALS: Ht 154.9 cm; Wt 84.1 kg
[2017-07-29] MEDS ORDERED: ONDANSETRON 4MG/2ML VIAL (J2405) IV ONE (05:00)
[2017-07-29] MEDS ORDERED: NS 1,000 ML IV ONE (05:00)
[2017-07-29] MEDS: MORPHINE 4 MG/ML 1ML SYRINGE IV PRN ×2 (05:20→06:30)
[2017-07-29 05:45] LABS: BASO # 0.1 10^3/uL (0.0-0.2); BASO % 0.4 % (0.0-1.0); EOS # 0.1 10^3/uL (0.0-0.50); EOS % 0.7 % (0.0-3.0); IMMATURE GRANULOCYTE % 0.9 % (0-0); LYMPH # 1.3 10^3/uL (1.5-4.5); LYMPH % 7.6 % (24.0-44.0); MEAN CORPUSCULAR HGB CONC 34.1 g/dl (32.0-36.5); NEUTROPHILS % 78.4 % (36.0-66.0); PLATELET COUNT, AUTOMATED 306 10^3/uL (150-450); WHITE BLOOD COUNT 16.6 10^3/uL (4.0-10.0)
[2017-07-29 05:51] LABS: INR 0.83
[2017-07-29 06:12] LABS: ALBUMIN 3.6 GM/DL (3.2-5.2); ALKALINE PHOSPHATASE 99 U/L (45-117); ALT/SGPT 26 U/L (12-78); ANION GAP 9 MEQ/L (8-16); AST/SGOT 15 U/L (7-37); BILIRUBIN,DIRECT 0.1 MG/DL (0.0-0.2); BILIRUBIN,TOTAL 0.5 MG/DL (0.2-1.0); BLOOD UREA NITROGEN 23 MG/DL (7-18); CALCIUM LEVEL 8.8 MG/DL (8.8-10.2); CARBON DIOXIDE LEVEL 22 MEQ/L (21-32); CHLORIDE LEVEL 108 MEQ/L (98-107); CREATININE FOR GFR 0.86 MG/DL (0.55-1.02); GLOMERULAR FILTRATION RATE > 60.0 (>45); GLUCOSE, FASTING 114 MG/DL (80-110); POTASSIUM SERUM 3.6 MEQ/L (3.5-5.1); SODIUM LEVEL 139 MEQ/L (136-145); TOTAL PROTEIN 7.2 GM/DL (6.4-8.2)
[2017-07-29] MEDS ORDERED: ISOVUE-370 76% 100ML VIAL (Q9967) As Ordered ONE (06:19)
--- NOTE | 2017-07-29 07:40 | REPUSA ---
CLINICAL HISTORY: Abdominal pain. TECHNIQUE: Multiple axial and coronal CT images were obtained through the abdomen and pelvis after ad ministration of intravenous contrast material. COMMENTS: Comparison to prior exam on 06/03/2017. Mild diffuse thickening of the small bowel loops. Fluid-filled mildly dilated small bowel loop in the right lower quadrant. The liver is mildly enlarge or decrease attenuation without mass or defect. There is no intra or extrahepatic biliary ductal dilatation. The spleen is normal. The gallbladder is within normal limits. The pancreas is of normal contour and attenuation characteri stics. There is no evidence of adrenal mass. Both kidneys demonstrate prompt and equal nephrograms. The kidneys are normal in size, shape and conf iguration. There is no evidence of renal or ureteral mass. No renal or ureteral calculi are identifie d. There is no hydroureter or hydronephrosis. No evidence for appendicitis. There is no evidence of abdominal ascites or lymphadenopathy. There is no evidence of intrinsic or extrinsic bladder mass. There is no pelvic ascites or lymphadeno jana. Images of the lung bases show no evidence of pleural or parenchymal mass. There are no pleural effusi ons. The bony structures are free of lytic or blastic lesions. Iliac stents are noted. IMPRESSION: Thickened small bowel. An infectious/inflammatory pathology is suggested. Not present on prior exam. Fluid-filled mildly dilated small bowel loop in the right lower quadrant. Focal ileus versus developi ng partial small bowel obstruction. Clinical evaluation and followup are suggested. Not present on pr ior exam. Thank you for your kind referral of this patient.
[2017-07-29] MEDS: SYMBICORT 80/4.5MCG INHALER 6GM INH SCH ×2 (09:00→21:03)
[2017-07-29] MEDS ORDERED: METF-699 PO (09:42)
[2017-07-29] MEDS ORDERED: CELE20TA PO (09:42)
[2017-07-29] MEDS ORDERED: IPRASOL4 INH (09:43)
[2017-07-29] MEDS ORDERED: OMEG100011 PO (09:43)
[2017-07-29] MEDS ORDERED: ONDANSETRON 4MG/2ML VIAL (J2405) IV PRN (10:45)
[2017-07-29] MEDS ORDERED: DEXTROSE 50% 50 ML SYRINGE IV PRN (11:45)
[2017-07-29] MEDS ORDERED: GLUCOSE 4 GM CHEW TABLET PO PRN (11:45)
[2017-07-29] MEDS ORDERED: GLUCAGON FOR INJ 1 MG VIAL (J1610) SC PRN (11:45)
[2017-07-29] MEDS ORDERED: IPRATROPIUM 0.5MG/ALBUTEROL 2.5MG INH SOL UD 3ML (DUONEB)(J7620) NEB PRN (11:45)
[2017-07-29] MEDS: NS 1,000 ML IV SCH (11:52)
[2017-07-29 12:31] VITALS: BP 120/67
[2017-07-29] MEDS: OMEPRAZOLE 20 MG CAP PO SCH (13:00)
[2017-07-29] MEDS: CitaloPRAM (CeleXA) 20 MG TAB PO SCH (13:22)
[2017-07-29] MEDS: LEVOTHYROXINE 88MCG TABLET (0.088 MG) PO SCH (13:22)
[2017-07-29] MEDS: CLOPIDOGREL 75 MG TAB PO SCH (13:23)
[2017-07-29] MEDS: ENOXAPARIN 40 MG/0.4 ML SYRINGE (J1650) SC SCH (13:23)
[2017-07-29] MEDS: CETIRIZINE (ZyrTEC) 10 MG TAB PO SCH (13:23)
[2017-07-29] MEDS: ASPIRIN 81 MG ENTERIC TAB PO SCH (13:23)
[2017-07-29] MEDS: amLODIPine 5 MG TAB PO SCH (13:24)
--- NOTE | 2017-07-29 13:24 | HPE ---
DATE OF ADMISSION: 07/29/2017 PRIMARY CARE PROVIDER: DANK Luu CHIEF COMPLAINT: Severe crampy abdominal pain with nausea, vomiting, and diarrhea for two days. PAST MEDICAL HISTORY: Recurrent episodes of diverticulitis. Hypertension. Diabetes, Dyslipidemia. Chronic obstructive pulmonary disease (COPD). Depression. Atherosclerotic disease of the abdominal aorta and common iliac arteries status post bilateral aortobifemoral stenting. Fatty liver. Hypothyroid. Obesity. HISTORY OF PRESENT ILLNESS: This is a 62-year-old female who presented to the emergency room via ambulance for severe crampy periumbilical pain, nausea, vomiting, and diarrhea going on for two days. She described her pain as being so severe that it may her cry and almost pass out. She does have a history of recurrent diverticulitis, when episodes presented in a similar way. She does give me a history of recurrent episodes of diarrhea going on for months. She would have about 2-3 days a week. Many years ago she was told that she was lactose intolerant so she stopped taking any milk products, but recently she has restarted taking some cheese and she felt that she had a cheese sandwich two days ago, which may have caused her to have this episode. In the emergency room, she had blood work done which showed a WBC of 16.6 with 78% neutrophils. Also her lactate was elevated to 3.3 and a followup was 2.5. She did have a gastrointestinal (GI) panel done which was negative. She continued to experience abdominal pain and diarrhea so the hospitalist service was consulted for admission. The patient had a CT scan with IV contrast only done in the emergency room, which showed thickened small bowel, which could be infectious or inflammatory. Fluid filled mildly dilated small bowel loop in the right lower quadrant, ileus versus developing partial small bowel obstruction. Liver mildly enlarged. Gallbladder within normal limits. Pancreas was normal. No evidence of intra-abdominal ascites or lymphadenopathy. Bilateral iliac stents are noted. On my interview for admission, the patient said her diarrhea had stopped and also her abdominal pain is much better. She no longer has any nausea or vomiting, but she feels very thirsty and very weak and tired. Patient is being admitted to the hospitalist service for possible gastroenteritis versus bowel ischemia versus some diverticulitis. PAST SURGICAL HISTORY: Bilateral aortofemoral stenting. Hysterectomy. Right breast cancer surgery. Bunion surgery on both feet. Additional past medical history also includes chronic low back pain. SOCIAL HISTORY: Patient is a smoker, smokes about a pack per day. Does not abuse alcohol or recreational drugs. FAMILY HISTORY: Father with history of myocardial infarction. HOME MEDICATIONS: - albuterol sulfate 2 puffs inhalation every 4 hours as needed shortness of breath - albuterol ipratropium nebulizer solution one every 4 hours as needed - aspirin 81 mg daily - atorvastatin 80 mg at bedtime - cetirizine 10 mg daily - Celexa 20 mg daily - Plavix 75 mg daily - colestipol 1 gram by mouth daily - Breo one puff inhalation daily - Synthroid 88 mcg by mouth daily - lisinopril/hydrochlorothiazide 20/25 one tablet by mouth daily - metformin 500 mg by mouth twice a day - omega 3 polyunsaturated acid one capsule by mouth twice a day - omeprazole 20 mg by mouth daily - potassium chloride 20 mEq by mouth daily REVIEW OF SYSTEMS: Patient denies any fever or chills. Denies any chest pain, cough or shortness of breath. Complains of crampy abdominal pain, low back pain, nausea and vomiting which has resolved, and also diarrhea, which has resolved. PHYSICAL EXAMINATION: VITAL SIGNS: Temperature 98.5, pulse 66, respiratory rate 18, blood pressure 129/62, pulse oximetry 93% in room air. GENERAL: Patient awake, alert and oriented times three, sitting up in bed in no acute distress. HEENT: Normocephalic, atraumatic. Moist mucous membranes, anicteric eyes. CHEST: Clear to auscultation. CARDIOVASCULAR: S1, S2 regular. No rub, murmur or gallop. ABDOMEN: Soft, nontender. Bowel sounds present. EXTREMITIES: No edema. LABORATORY DATA: WBC 16.6, hemoglobin 16, platelets 306. Sodium 139, potassium 3.6, chloride 108, bicarb 22, BUN 23, creatinine 0.86, glucose 114, lactate 2.5, calcium 8.8. Liver function tests are normal. Lipase is normal. Coagulation panel is normal. CT abdomen and pelvis with IV contrast as above. ASSESSMENT/PLAN: This is a 62-year-old female admitted who presented to the hospital with abdominal pain nausea, vomiting and diarrhea, admitted for possible viral gastroenteritis versus diverticulitis verus mesenteric ischemia. PLAN: 1. Nausea, vomiting, diarrhea, and abdominal pain. GI panel is negative. Most probably viral gastroenteritis. Will not start on any antibiotics. Will continue with IV fluids. If the patient continues to have elevated white count, or spikes a fever, we can consider adding antibiotics. Will allow for a liquid diet. CT abdomen and pelvis reviewed. There is a thickened small bowel with possible infectious or inflammatory pathology. At this point, I think it is more inflammatory rather than infectious. There is also signs of some focal ileus. Clinically, there is no features of bowel obstruction. Patient does have extensive vascular disease with a history of bilateral aortofemoral stenting as well as atherosclerotic disease of abdominal aorta, so we will have to evaluate whether this is an episode of mesenteric ischemic causing her symptoms or not. We will get the CT angio of the abdominal arteries tomorrow. We cannot do it today as the patient already had contrast this a.m. Will continue to monitor lactic acid. I do not think this is an episode of diverticulitis . 2. Leukocytosis. Most probably reactive. Will continue to monitor. 3. Bilateral iliac artery stenosis. Patient had bilateral aortofemoral stenting done in April 2014 at [facility]. 4. Diabetes. Will continue with insulin in the hospital. Will hold metformin at present. 5. Hypertension. Will hold hydrochlorothiazide. Will continue with lisinopril. 6. Hypothyroid. Will continue with Synthroid. 7. Chronic obstructive pulmonary disease (COPD). Will continue with albuterol as needed and DuoNebs as needed as well as will given Symbicort in place of Breo. 8. Hyperlipidemia. Will continue with atorvastatin. 9. History of recurrent diverticulitis. However, this episode I do not think is consistent with diverticulitis, however will continue to monitor her white count, vitals and cultures. 10. Obstructive sleep apnea (ERICAK). Will continue with CPAP. 11. Periodic limb movement disorder during sleep. Will continue with the ropinirole. 12. GERD. Will continue with omeprazole. 13. Peripheral vascular disease and history of intra-abdominal atherosclerotic disease. Will continue with aspirin and Plavix. 14. History of breast cancer status post surgery and radiation therapy. No issues at this point. 15. Depression. Will continue with Celexa. 16. Deep vein thrombosis (DVT) prophylaxis has been ordered.
[2017-07-29] MEDS: HumaLOG INSULIN (NovoLOG) PER UNIT SC SCH ×3 (14:20→21:00)
[2017-07-29 20:00] VITALS: BP 109/58
[2017-07-29] MEDS: ATORVASTATIN 20 MG TAB PO SCH (20:13)
[2017-07-30] VITALS: BP 108/64
[2017-07-30] MEDS: NS 1,000 ML IV SCH ×2 (06:27→13:40)
[2017-07-30] MEDS: LEVOTHYROXINE 88MCG TABLET (0.088 MG) PO SCH (06:27)
[2017-07-30 06:56] LABS: BASO % 0.6 % (0.0-1.0); EOS # 0.2 10^3/uL (0.0-0.50); EOS % 2.2 % (0.0-3.0); IMMATURE GRANULOCYTE % 0.4 % (0-0); LYMPH # 2.6 10^3/uL (1.5-4.5); LYMPH % 38.5 % (24.0-44.0); MEAN CORPUSCULAR HEMOGLOBIN 29.4 pg (27.0-33.0); MEAN CORPUSCULAR HGB CONC 34.3 g/dl (32.0-36.5); MEAN CORPUSCULAR VOLUME 85.7 fl (80.0-96.0); MONO # 0.5 10^3/uL (0.0-0.8); MONO % 7.6 % (0.0-5.0); NEUTROPHILS # 3.4 10^3/uL (1.8-7.7); NEUTROPHILS % 50.7 % (36.0-66.0); PLATELET COUNT, AUTOMATED 268 10^3/uL (150-450); RED CELL DISTRIBUTION WIDTH 13.8 % (11.5-14.5); WHITE BLOOD COUNT 6.7 10^3/uL (4.0-10.0)
[2017-07-30 07:12] LABS: ANION GAP 7 MEQ/L (8-16); BLOOD UREA NITROGEN 9 MG/DL (7-18); CALCIUM LEVEL 8.5 MG/DL (8.8-10.2); CARBON DIOXIDE LEVEL 27 MEQ/L (21-32); CHLORIDE LEVEL 105 MEQ/L (98-107); CREATININE FOR GFR 0.64 MG/DL (0.55-1.02); GLOMERULAR FILTRATION RATE > 60.0 (>45); GLUCOSE, FASTING 103 MG/DL (80-110); POTASSIUM SERUM 3.4 MEQ/L (3.5-5.1); SODIUM LEVEL 139 MEQ/L (136-145)
[2017-07-30] MEDS: SYMBICORT 80/4.5MCG INHALER 6GM INH SCH ×2 (07:12→22:15)
[2017-07-30] MEDS ORDERED: ISOVUE-370 76% 100ML VIAL (Q9967) As Ordered ONE (07:47)
[2017-07-30 08:00] VITALS: BP 120/73
[2017-07-30] MEDS ORDERED: POTASSIUM CHLORIDE 10 MEQ SR TABLET PO ONE (09:00)
--- NOTE | 2017-07-30 09:18 | REP ---
Clinical: Mesenteric ischemia. Technique: Axial contrast enhanced images from the lung bases to the pubic symphysis using 100 ml Isovue 370 intravenous contrast material with coronal and sagittal re-formations as well as coronal MIP and 3-D volume rendering of the vasculature. Comparison: 07/29/2017. Findings: Moderate atherosclerotic changes of the aorta are appreciated including mixed, partially calcified atheromatous plaquing through the bifurcation to common iliac arteries with evidence for bilateral aortoiliac stenting. The origins of the celiac axis, superior mesenteric artery (SMA), and bilateral solitary renal arteries appear relatively normal and free of significant atheromatous plaquing and demonstrate appropriate enhancement without evidence for thrombotic occlusion or stenosis. The origin of the inferior mesenteric artery (BRENDAN) demonstrates moderate atheromatous plaquing. No obvious areas of aneurysm or stenosis are identified through the aorta and major branch vessels. The portal vein including superior mesenteric vein demonstrate satisfactory enhancement. There is no evidence for portal venous gas. Liver, spleen, pancreas, gallbladder, bilateral adrenal glands and kidneys are normal. The enteric system is without obstruction or acute inflammatory process. No bowel wall thickening, pneumatosis, inflammatory stranding with decreased mural enhancement is appreciated to suggest bowel ischemia. Colonic and sigmoid diverticulosis noted without acute diverticulitis. Pelvis demonstrates normal bladder and evidence for prior hysterectomy. No pelvic fluid or ascites. No adenopathy. No free air. Surrounding musculoskeletal structures demonstrate age-related degenerative changes without focal osseous abnormality. Impression: 1. Moderate atherosclerotic changes as noted above relatively normal, satisfactory enhancement of the intra-abdominal vasculature without evidence for significant stenosis or obvious abnormality. 2. Colonic and sigmoid diverticulosis without acute diverticulitis. 3. No further acute abdominopelvic pathology appreciated. No obvious enteric findings related to bowel ischemia. Signed by Rubin Dodge MD 07/30/2017 09:09 A
[2017-07-30] MEDS: OMEPRAZOLE 20 MG CAP PO SCH (09:19)
[2017-07-30] MEDS: CitaloPRAM (CeleXA) 20 MG TAB PO SCH (09:23)
[2017-07-30] MEDS: amLODIPine 5 MG TAB PO SCH (09:23)
[2017-07-30] MEDS: ASPIRIN 81 MG ENTERIC TAB PO SCH (09:23)
[2017-07-30] MEDS: HumaLOG INSULIN (NovoLOG) PER UNIT SC SCH ×4 (09:24→21:00)
[2017-07-30] MEDS: CETIRIZINE (ZyrTEC) 10 MG TAB PO SCH (09:24)
[2017-07-30] MEDS: ENOXAPARIN 40 MG/0.4 ML SYRINGE (J1650) SC SCH (09:24)
[2017-07-30] MEDS: CLOPIDOGREL 75 MG TAB PO SCH (09:24)
--- NOTE | 2017-07-30 12:29 | IPNPDOC ---
Subjective Date Seen The patient was seen on 07/30/17. Subjective Chief Complaint/HPI The patient is a 62-year-old female admitted with a reason for visit of Diarrhea. Events since last encounter feeling much better , abdominal pain , nausea , vomiting and diarrhea has resolved., no fever or chills, no chest pain or sob , no cough or phlegm. Still does not have much appetite yet. Objective Physical Examination General Exam: Positive: Alert, Cooperative, No Acute Distress Eye Exam: Positive: PERRLA, Conjunctiva & lids normal, EOMI, Negative: Sclera icteric ENT Exam: Positive: Atraumatic, Mucous membr. moist/pink, Pharynx Normal Neck Exam: Positive: Supple, Negative: JVD, thyromegaly Chest Exam: Positive: Clear to auscultation, Normal air movement Heart Exam: Positive: Rate Normal, Regular Rhythm, Normal S1, Normal S2, Negative: Murmurs, Rubs Abdomen Exam: Positive: Normal bowel sounds, Soft, Negative: Tenderness, Hepatospenomegaly Extremity Exam: Positive: Normal pulses, Negative: Clubbing, Cyanosis, Edema Skin Exam: Positive: Nl turgor and temperature, Negative: Rash, Breakdown Assessment /Plan Problems (1) Viral gastroenteritis Status: Acute Response to Treatment: Improving Problem Text: patients symptoms have mostly resolved spontaneously with supportive measure. CTA of the abdomen was negative for any stenosis or occlution of the intraabdominal arteries. There were no signs of bowel ischemia gi panel negative. Patient does have history of lactose intolerance and also irritable bowel disease. May have been a flare up of either. will advance diet. ileus with fluid in small bowel loops resolved in the CT scan done next day. (2) Irritable bowel syndrome Status: Chronic (3) Diverticulosis Status: Chronic Problem Text: no features of diverticulitis. (4) Hypothyroid Status: Chronic (5) Hyperlipidemia Status: Chronic (6) Diabetes Status: Chronic (7) Hypertension Status: Chronic (8) Atherosclerosis of aortic bifurcation and common iliac arteries Status: Chronic Problem Text: status post bilaterl common illiac stents done in 2013 continue ASA and Plavix. (9) Depression Status: Chronic (10) Fatty liver Status: Chronic (11) COPD (chronic obstructive pulmonary disease) Status: Chronic Plan/VTE VTE Prophylaxis Ordered?: Yes VS, I&O, 24H, Fishbone Vital Signs/I&O Vital Signs Date Time Temp Pulse Resp B/P (MAP) Pulse Ox O2 Delivery O2 Flow Rate FiO2 07/30/17 09:23 67 116/58 07/30/17 08:00 97.7 18 95 Room Air 07/30/17 00:00 2.0 I&O- Last 24 Hours up to 6 AM 07/31/17 06:00 Intake Total 240 ml Output Total 600 ml Balance -360 ml Laboratory Data 24H LABS Laboratory Tests 2 07/29/17 13:03: Bedside Glucose (Misc Panel) 109 07/29/17 17:00: Bedside Glucose (Misc Panel) 92 07/29/17 20:51: Bedside Glucose (Misc Panel) 147H 07/30/17 06:40: Immature Granulocyte % (Auto) 0.4H, White Blood Count 6.7, Red Blood Count 4.46 , Hemoglobin 13.1#, Hematocrit 38.2, Mean Corpuscular Volume 85.7, Mean Corpuscular Hemoglobin 29.4, Mean Corpuscular Hemoglobin Concent 34.3, Red Cell Distribution Width 13.8, Platelet Count 268, Neutrophils (%) (Auto) 50.7, Lymphocytes (%) (Auto) 38.5, Monocytes (%) (Auto) 7.6H, Eosinophils (%) (Auto) 2.2, Basophils (%) (Auto) 0.6, Neutrophils # (Auto) 3.4, Lymphocytes # (Auto) 2.6, Monocytes # (Auto) 0.5, Eosinophils # (Auto) 0.2, Basophils # (Auto) 0.0, Immature Granulocyte # (Auto) 0.0, Nucleated Red Blood Cells % (auto) 0.0, Anion Gap 7L, Glomerular Filtration Rate > 60.0, Blood Urea Nitrogen 9#, Creatinine 0.64, Sodium Level 139, Potassium Level 3.4L, Chloride Level 105, Carbon Dioxide Level 27, Calcium Level 8.5L 07/30/17 08:40: Lactic Acid Level 2.9*H CBC/BMP Laboratory Tests 07/30/17 06:40 Red Blood Count 4.46, Mean Corpuscular Volume 85.7, Mean Corpuscular Hemoglobin 29.4, Mean Corpuscular Hemoglobin Concent 34.3, Red Cell Distribution Width 13.8 , Neutrophils (%) (Auto) 50.7, Lymphocytes (%) (Auto) 38.5, Monocytes (%) (Auto ) 7.6 H, Eosinophils (%) (Auto) 2.2, Basophils (%) (Auto) 0.6, Neutrophils # ( Auto) 3.4, Lymphocytes # (Auto) 2.6, Monocytes # (Auto) 0.5, Eosinophils # (Auto ) 0.2, Basophils # (Auto) 0.0, Calcium Level 8.5 L Microbiology Microbiology 07/29/17 Blood Culture - Preliminary, Resulted No growth after 24 hours . All specim... 07/29/17 Blood Culture - Preliminary, Resulted No growth after 24 hours . All specim... 07/29/17 Gastrointestinal Tract Panel (PCR) - Final, Complete DEANNA FORREST MD Jul 30, 2017 12:29
[2017-07-30 16:00] VITALS: BP 118/70
[2017-07-30] MEDS: ATORVASTATIN 20 MG TAB PO SCH (19:58)
[2017-07-30 20:00] VITALS: BP 115/62
[2017-07-31] VITALS: BP 111/62
[2017-07-31] MEDS: LEVOTHYROXINE 88MCG TABLET (0.088 MG) PO SCH (05:51)
[2017-07-31 07:03] LABS: BASO % 0.6 % (0.0-1.0); EOS # 0.2 10^3/uL (0.0-0.50); EOS % 2.4 % (0.0-3.0); LYMPH # 2.8 10^3/uL (1.5-4.5); LYMPH % 38.8 % (24.0-44.0); MEAN CORPUSCULAR HEMOGLOBIN 28.6 pg (27.0-33.0); MEAN CORPUSCULAR HGB CONC 33.6 g/dl (32.0-36.5); MEAN CORPUSCULAR VOLUME 85.3 fl (80.0-96.0); MONO # 0.6 10^3/uL (0.0-0.8); MONO % 8.2 % (0.0-5.0); NEUTROPHILS # 3.5 10^3/uL (1.8-7.7); PLATELET COUNT, AUTOMATED 287 10^3/uL (150-450); RED CELL DISTRIBUTION WIDTH 13.8 % (11.5-14.5); WHITE BLOOD COUNT 7.1 10^3/uL (4.0-10.0)
[2017-07-31 07:11] LABS: ANION GAP 6 MEQ/L (8-16); BLOOD UREA NITROGEN 12 MG/DL (7-18); CALCIUM LEVEL 9.2 MG/DL (8.8-10.2); CARBON DIOXIDE LEVEL 28 MEQ/L (21-32); CHLORIDE LEVEL 107 MEQ/L (98-107); CREATININE FOR GFR 0.62 MG/DL (0.55-1.02); GLOMERULAR FILTRATION RATE > 60.0 (>45); GLUCOSE, FASTING 102 MG/DL (80-110); SODIUM LEVEL 141 MEQ/L (136-145)
[2017-07-31] MEDS: SYMBICORT 80/4.5MCG INHALER 6GM INH SCH (07:27)
[2017-07-31] MEDS: OMEPRAZOLE 20 MG CAP PO SCH (07:47)
[2017-07-31] MEDS: CLOPIDOGREL 75 MG TAB PO SCH (07:47)
[2017-07-31] MEDS: CETIRIZINE (ZyrTEC) 10 MG TAB PO SCH (07:47)
[2017-07-31] MEDS: CitaloPRAM (CeleXA) 20 MG TAB PO SCH (07:47)
[2017-07-31] MEDS: ASPIRIN 81 MG ENTERIC TAB PO SCH (07:47)
[2017-07-31 07:48] VITALS: BP 141/72
[2017-07-31] MEDS: amLODIPine 5 MG TAB PO SCH (07:48)
[2017-07-31] MEDS: HumaLOG INSULIN (NovoLOG) PER UNIT SC SCH (07:49)
[2017-07-31 07:57] VITALS: BP 141/71
--- NOTE | 2017-07-31 11:32 | IPNPDOC ---
Subjective Date Seen The patient was seen on 07/31/17. Subjective Chief Complaint/HPI The patient is a 62-year-old female admitted with a reason for visit of Diarrhea. Events since last encounter No complaints this morning, abdominal pain , nausea , vomiting and diarrhea are all resolved. Objective Physical Examination General Exam: Positive: Alert, Cooperative, No Acute Distress Eye Exam: Positive: PERRLA, Conjunctiva & lids normal, EOMI, Negative: Sclera icteric ENT Exam: Positive: Atraumatic, Mucous membr. moist/pink, Pharynx Normal Neck Exam: Positive: Supple, Negative: JVD, thyromegaly Chest Exam: Positive: Clear to auscultation, Normal air movement Heart Exam: Positive: Rate Normal, Regular Rhythm, Normal S1, Normal S2, Negative: Murmurs, Rubs Abdomen Exam: Positive: Normal bowel sounds, Soft, Negative: Tenderness, Hepatospenomegaly Extremity Exam: Positive: Normal pulses, Negative: Clubbing, Cyanosis, Edema Skin Exam: Positive: Nl turgor and temperature, Negative: Rash, Breakdown Assessment /Plan Problems (1) Viral gastroenteritis Status: Resolved Problem Text: patients symptoms have resolved spontaneously with supportive measure. CTA of the abdomen was negative for any stenosis or occlusion of the intraabdominal arteries. There were no signs of bowel ischemia gi panel negative. Patient does have history of lactose intolerance and also irritable bowel disease. May have been a flare up of either. tolerating regular diet. ileus with fluid in small bowel loops resolved in the CT scan done next day. (2) Irritable bowel syndrome Status: Chronic (3) Diverticulosis Status: Chronic Problem Text: no features of diverticulitis. (4) Hypothyroid Status: Chronic (5) Hyperlipidemia Status: Chronic (6) Diabetes Status: Chronic (7) Hypertension Status: Chronic (8) Atherosclerosis of aortic bifurcation and common iliac arteries Status: Chronic Problem Text: status post bilaterl common illiac stents done in 2013 continue ASA and Plavix. (9) Depression Status: Chronic (10) Fatty liver Status: Chronic (11) COPD (chronic obstructive pulmonary disease) Status: Chronic Plan/VTE VTE Prophylaxis Ordered?: Yes Disposition Patient discharged home. VS, I&O, 24H, Fishbone Vital Signs/I&O Vital Signs Date Time Temp Pulse Resp B/P (MAP) Pulse Ox O2 Delivery O2 Flow Rate FiO2 07/31/17 07:57 97.1 63 18 141/71 (94) 96 Room Air 07/31/17 01:00 1.0 I&O- Last 24 Hours up to 6 AM 08/01/17 06:00 Intake Total 180 ml Output Total 300 ml Balance -120 ml Laboratory Data 24H LABS Laboratory Tests 2 07/30/17 13:02: Bedside Glucose (Misc Panel) 79L 07/30/17 13:03: Lactic Acid Followup at 4 Hours 1.7 07/30/17 17:15: Bedside Glucose (Misc Panel) 159H 07/30/17 21:46: Bedside Glucose (Misc Panel) 109 07/31/17 06:38: Immature Granulocyte % (Auto) 1.0H, White Blood Count 7.1, Red Blood Count 4.75 , Hemoglobin 13.6, Hematocrit 40.5, Mean Corpuscular Volume 85.3, Mean Corpuscular Hemoglobin 28.6, Mean Corpuscular Hemoglobin Concent 33.6, Red Cell Distribution Width 13.8, Platelet Count 287, Neutrophils (%) (Auto) 49.0, Lymphocytes (%) (Auto) 38.8, Monocytes (%) (Auto) 8.2H, Eosinophils (%) (Auto) 2.4, Basophils (%) (Auto) 0.6, Neutrophils # (Auto) 3.5, Lymphocytes # (Auto) 2.8, Monocytes # (Auto) 0.6, Eosinophils # (Auto) 0.2, Basophils # (Auto) 0.0, Immature Granulocyte # (Auto) 0.1H, Nucleated Red Blood Cells % (auto) 0.0 07/31/17 06:39: Anion Gap 6L, Glomerular Filtration Rate > 60.0, Blood Urea Nitrogen 12, Creatinine 0.62, Sodium Level 141, Potassium Level 4.0, Chloride Level 107, Carbon Dioxide Level 28, Calcium Level 9.2 CBC/BMP Laboratory Tests 07/31/17 06:38 Red Blood Count 4.75, Mean Corpuscular Volume 85.3, Mean Corpuscular Hemoglobin 28.6, Mean Corpuscular Hemoglobin Concent 33.6, Red Cell Distribution Width 13.8 , Neutrophils (%) (Auto) 49.0, Lymphocytes (%) (Auto) 38.8, Monocytes (%) (Auto ) 8.2 H, Eosinophils (%) (Auto) 2.4, Basophils (%) (Auto) 0.6, Neutrophils # ( Auto) 3.5, Lymphocytes # (Auto) 2.8, Monocytes # (Auto) 0.6, Eosinophils # (Auto ) 0.2, Basophils # (Auto) 0.0 07/31/17 06:39 Calcium Level 9.2 Microbiology Microbiology 07/29/17 Blood Culture - Preliminary, Resulted No Growth after 48 hours. All Specime... 07/29/17 Blood Culture - Preliminary, Resulted No Growth after 48 hours. All Specime... 07/29/17 Gastrointestinal Tract Panel (PCR) - Final, Complete DEANNA FORREST MD Jul 31, 2017 11:32
== END 2017-07-31 10:25 | disposition home or self-care (01) ==
LOC: EDSEX 03:33 → M ED 03:33 → EDBD 03:33 → M ED INP 10:44 → M PED 12:21
PROVIDERS: ADMIT Internal Medicine Nephrology; ATTEND Internal Medicine Nephrology
DX: K52.9 Noninfective gastroenteritis and colitis, unspecified (principal); K58.8 Other irritable bowel syndrome; K57.30 Diverticulosis of large intestine without perforation or abscess without bleeding; E03.9 Hypothyroidism, unspecified; E78.4 Other hyperlipidemia; E11.9 Type 2 diabetes mellitus without complications; I10 Essential (primary) hypertension; K21.9 Gastro-esophageal reflux disease without esophagitis; I70.0 Atherosclerosis of aorta; F32.9 Major depressive disorder, single episode, unspecified; K76.0 Fatty (change of) liver, not elsewhere classified; J44.9 Chronic obstructive pulmonary disease, unspecified; E66.9 Obesity, unspecified; E85.3 Secondary systemic amyloidosis; M54.5 Low back pain; F17.210 Nicotine dependence, cigarettes, uncomplicated; Z79.02 Long term (current) use of antithrombotics/antiplatelets; Z79.51 Long term (current) use of inhaled steroids; Z79.899 Other long term (current) drug therapy; G47.33 Obstructive sleep apnea (adult) (pediatric); G47.61 Periodic limb movement disorder; Z79.82 Long term (current) use of aspirin; Z92.3 Personal history of irradiation
CPT/HCPCS: 36415; 72191; 74175; 74177; 80048; 80076; 82550; 82553; 83605; 83690; 84484; 85025; 85610; 85730; 87040; 87507; 93041; 94640; 96372; 96374; 96375; 96376; 99285; G0378; J1650; J2405; Q9967

== ENCOUNTER 2017-09-24 15:35 | Emergency (ER) | payer MEDICARE ==
[2017-09-24] MEDS: ADACEL/BOOSTRIX VACCINE (DIPHTH/PERTUSS/ACELL/TETANUS)0.5ML SYR (90715) IM (18:10)
== END 2017-09-24 18:30 | disposition home or self-care (01) ==
LOC: M ED 15:35
DX: S61.451A Open bite of right hand, initial encounter (principal); L03.113 Cellulitis of right upper limb; W55.01XA Bitten by cat, initial encounter; Y92.89 Other specified places as the place of occurrence of the external cause; E11.9 Type 2 diabetes mellitus without complications; K21.9 Gastro-esophageal reflux disease without esophagitis; J44.9 Chronic obstructive pulmonary disease, unspecified; G47.33 Obstructive sleep apnea (adult) (pediatric); E03.9 Hypothyroidism, unspecified; M54.9 Dorsalgia, unspecified; Z85.3 Personal history of malignant neoplasm of breast; F17.210 Nicotine dependence, cigarettes, uncomplicated; Z79.899 Other long term (current) drug therapy; Z79.82 Long term (current) use of aspirin; Z79.02 Long term (current) use of antithrombotics/antiplatelets; Z79.84 Long term (current) use of oral hypoglycemic drugs; Z79.51 Long term (current) use of inhaled steroids
CPT/HCPCS: 90715

== ENCOUNTER 2018-05-12 09:56 | Emergency (ER) | payer OTHER, MEDICARE | END 2018-05-12 11:48 | disposition home or self-care (01) | LOC: M ED 09:56 | DX: L03.115 Cellulitis of right lower limb (principal); S80.01XA Contusion of right knee, initial encounter; S80.211A Abrasion, right knee, initial encounter; W19.XXXA Unspecified fall, initial encounter; Y92.410 Unspecified street and highway as the place of occurrence of the external cause; I10 Essential (primary) hypertension; E11.9 Type 2 diabetes mellitus without complications; F17.210 Nicotine dependence, cigarettes, uncomplicated; Z79.899 Other long term (current) drug therapy; Z79.82 Long term (current) use of aspirin; Z79.02 Long term (current) use of antithrombotics/antiplatelets; Z79.84 Long term (current) use of oral hypoglycemic drugs; Z79.51 Long term (current) use of inhaled steroids | CPT/HCPCS: 73564 ==

== ENCOUNTER → 2018-07-18 | Outpatient (CLI) | payer OTHER ==
[2018-07-18 12:01] LABS: BASO # 0.1 10^3/uL (0.0-0.2); EOS # 0.2 10^3/uL (0.0-0.50); HEMATOCRIT 42.2 % (36.0-47.0); HEMOGLOBIN 14.3 g/dl (12.0-15.5); IMMATURE GRANULOCYTE % 0.9 % (0-3.0); LYMPH # 3.3 10^3/uL (1.5-4.5); LYMPH % 36.8 % (24.0-44.0); MEAN CORPUSCULAR HEMOGLOBIN 29.1 pg (27.0-33.0); MEAN CORPUSCULAR HGB CONC 33.9 g/dl (32.0-36.5); MEAN CORPUSCULAR VOLUME 85.8 fl (80.0-96.0); MONO # 0.9 10^3/uL (0.0-0.8); MONO % 9.7 % (0.0-5.0); NEUTROPHILS # 4.4 10^3/uL (1.8-7.7); NEUTROPHILS % 49.6 % (36.0-66.0); PLATELET COUNT, AUTOMATED 305 10^3/uL (150-450); RED BLOOD COUNT 4.92 10^6/uL (4.00-5.40); RED CELL DISTRIBUTION WIDTH 13.7 % (11.5-14.5)
[2018-07-18 12:38] LABS: ALBUMIN 3.8 GM/DL (3.2-5.2); ALBUMIN/GLOBULIN RATIO 1.23 (1.00-1.93); ALKALINE PHOSPHATASE 102 U/L (45-117); ALT/SGPT 19 U/L (12-78); ANION GAP 8 MEQ/L (8-16); AST/SGOT 13 U/L (7-37); BILIRUBIN,TOTAL 0.6 MG/DL (0.2-1.0); BLOOD UREA NITROGEN 14 MG/DL (7-18); CALCIUM LEVEL 9.6 MG/DL (8.8-10.2); CARBON DIOXIDE LEVEL 29 MEQ/L (21-32); CHLORIDE LEVEL 99 MEQ/L (98-107); CHOLESTEROL LEVEL 167 MG/DL (<200); CHOLESTEROL RISK RATIO 4.073 (<5); GLOMERULAR FILTRATION RATE > 60.0 (>45); GLUCOSE, FASTING 83 MG/DL (70-100); HDL CHOLESTEROL 41 MG/DL (>40); LDL CHOLESTEROL 105 MG/DL (<100); NON-HDL-C 126 MG/DL; POTASSIUM SERUM 4.4 MEQ/L (3.5-5.1); SODIUM LEVEL 136 MEQ/L (136-145); THYROXINE (T4) 9.5 UG/DL (4.5-12.0); TOTAL PROTEIN 6.9 GM/DL (6.4-8.2); TRIGLYCERIDES LEVEL 107 MG/DL (<150)
[2018-07-18 15:24] LABS: ESTIMATED AVERAGE GLUCOSE 128 MG/DL (60-110); HEMOGLOBIN A1c 6.1 %
== END ==
LOC: M LRY 08:46
DX: M25.562 Pain in left knee (principal); M25.571 Pain in right ankle and joints of right foot; M25.572 Pain in left ankle and joints of left foot; E87.6 Hypokalemia; E03.9 Hypothyroidism, unspecified; E11.65 Type 2 diabetes mellitus with hyperglycemia; E78.2 Mixed hyperlipidemia
CPT/HCPCS: 84443

== ENCOUNTER 2018-10-09 11:26 | Emergency (ER) | payer MEDICARE, OTHER ==
[~2018-10-09] VITALS: Ht 154.9 cm; Wt 82.3 kg
[~2018-10-09 11:26] MED LIST changes: +AUGM875T28 PO; +BREO1INH PO; +CELE20TA PO; +COLA100C5 PO; +IPRA0.00 INH; +KEFL500C17 PO; +METF-699 PO; +METR-201 PO; -METR1TAB66 PO; +OMEG100011 PO; +ZOFR4TAB14 PO; -ZOFR4TAB3 PO
[2018-10-09 12:00] LABS: BASO # 0.1 10^3/uL (0.0-0.2); BASO % 0.7 % (0.0-1.0); EOS # 0.2 10^3/uL (0.0-0.50); EOS % 1.3 % (0.0-3.0); HEMATOCRIT 42.1 % (36.0-47.0); HEMOGLOBIN 14.7 g/dl (12.0-15.5); LYMPH # 3.7 10^3/uL (1.5-4.5); LYMPH % 23.7 % (24.0-44.0); MEAN CORPUSCULAR HEMOGLOBIN 29.3 pg (27.0-33.0); MEAN CORPUSCULAR HGB CONC 34.9 g/dl (32.0-36.5); MEAN CORPUSCULAR VOLUME 83.9 fl (80.0-96.0); MONO # 1.6 10^3/uL (0.0-0.8); MONO % 10.4 % (0.0-5.0); NEUTROPHILS # 9.8 10^3/uL (1.8-7.7); NEUTROPHILS % 62.9 % (36.0-66.0); PLATELET COUNT, AUTOMATED 324 10^3/uL (150-450); RED BLOOD COUNT 5.02 10^6/uL (4.00-5.40); WHITE BLOOD COUNT 15.6 10^3/uL (4.0-10.0)
[2018-10-09] MEDS ORDERED: NS 1,000 ML IV ONE (12:00)
[2018-10-09 12:32] LABS: ALBUMIN 3.9 GM/DL (3.2-5.2); ALT/SGPT 26 U/L (12-78); BILIRUBIN,DIRECT 0.1 MG/DL (0.0-0.2); BILIRUBIN,TOTAL 0.5 MG/DL (0.2-1.0); BLOOD UREA NITROGEN 18 MG/DL (7-18); CALCIUM LEVEL 9.5 MG/DL (8.8-10.2); CARBON DIOXIDE LEVEL 21 MEQ/L (21-32); CHLORIDE LEVEL 103 MEQ/L (98-107); CREATININE FOR GFR 0.72 MG/DL (0.55-1.30); GLOMERULAR FILTRATION RATE > 60.0 (>45); GLUCOSE, FASTING 96 MG/DL (70-100); LIPASE 132 U/L (73-393); POTASSIUM SERUM 3.7 MEQ/L (3.5-5.1); SODIUM LEVEL 136 MEQ/L (136-145); TOTAL PROTEIN 7.6 GM/DL (6.4-8.2)
[2018-10-09] MEDS ORDERED: ISOVUE-370 76% 100ML VIAL (Q9967) As Ordered ONE (12:43)
[2018-10-09] MEDS ORDERED: ONDANSETRON 4MG/2ML VIAL (J2405) IV ONE (13:15)
[2018-10-09] MEDS ORDERED: MORPHINE 4 MG/ML 1ML VIAL/SYRINGE (J2270) IV ONE (13:15)
--- NOTE | 2018-10-09 13:15 | REP ---
Clinical: Left-sided abdominal pain. Technique: Axial contrast enhanced images from the lung bases to the pubic symphysis using 100 ml Isovue 370 intravenous contrast material with coronal and sagittal re-formations. Comparison: 07/29/2017. Findings: Inflammatory stranding and mucosal thickening involves a short segment of the distal descending colon with multiple diverticula and is most compatible with acute diverticulitis (axial images 82-102). No associated bowel obstruction, free air or free fluid to suggest perforation, and no drainable collection/abscess. Remainder of the small and large bowel is without acute process. Fatty infiltration to the liver. Small hyperemic focus along the posterior right hepatic lobe (image 22) may represent hemangioma. Spleen, pancreas, gallbladder, bilateral adrenal glands and kidneys are normal. Pelvis demonstrates normal bladder and evidence for prior hysterectomy. No ascites. No free air. No significant adenopathy. Atherosclerotic changes of the aorta and vasculature without aneurysm. Musculoskeletal structures demonstrate age-related changes without focal osseous abnormality. Lung bases demonstrate chronic changes. Impression: 1. Acute sigmoid diverticulitis involving the distal descending colon. No associated free air, free fluid, or drainable collection/abscess. No obstruction. 2. Small subcentimeter flash filling hemangioma suspected in the posterior right lobe liver. Electronically Signed by Rubin Dodeg MD 10/09/2018 01:06 P
[2018-10-09] MEDS ORDERED: CIPROFLOXACIN 400 MG in APPROPRIATE DILUENT 1 EA IV ONE (13:30)
[2018-10-09] MEDS ORDERED: metroNIDAZOLE (FLAGYL) 500 MG TAB PO ONE (13:30)
[2018-10-09] MEDS ORDERED: ONDA4TAB6 PO (14:43)
[2018-10-09] MEDS ORDERED: FLAG500T PO (14:43)
[2018-10-09] MEDS ORDERED: CIPR-249 PO (14:43)
[2018-10-09] MEDS ORDERED: NORCOTAB PO (14:43)
[2018-10-09 15:22] VITALS: BP 104/57
== END 2018-10-09 15:23 | disposition home or self-care (01) ==
LOC: M ED 11:26
DX: K57.92 Diverticulitis of intestine, part unspecified, without perforation or abscess without bleeding (principal); Z79.899 Other long term (current) drug therapy; Z79.890 Hormone replacement therapy; Z79.82 Long term (current) use of aspirin; F17.210 Nicotine dependence, cigarettes, uncomplicated
CPT/HCPCS: 74177; 80048; 80076; 81001; 83605; 83690; 85025; 87086; 96361; 96374; 96375; 99284; J0744; J2270; J2405; Q9967

== ENCOUNTER → 2018-10-21 | Outpatient (CLI) | payer MEDICARE ==
[~2018-10-21] MED LIST changes: +NORCOTAB PO; +ONDA4TAB6 PO
--- NOTE | 2018-10-21 11:12 | REP ---
LUMBAR SPINE, FIVE VIEWS: HISTORY: Back pain. There is no acute fracture or subluxation. The L1-2 through L3-4 and L5-S1 intervertebral discs are decreased in height consistent with disc degeneration. Osteophytes are present throughout the lumbar spine. There is narrowing of the L4-5 and L5-S1 facet joints with associated sclerosis. Stents are present in the area of the distal abdominal aorta and common iliac arteries. IMPRESSION: Degenerative change as described above. Electronically Signed by Vincent Crystal MD 10/21/2018 11:13 A
--- NOTE | 2018-10-21 11:47 | REP ---
BILATERAL HIPS, AP PELVIS, FIVE VIEWS: HISTORY: Left hip pain. RIGHT HIP: There is no acute fracture or dislocation. There is mild narrowing of the joint space. IMPRESSION: Degenerative change as described above. LEFT HIP: There is no acute fracture or dislocation. There is mild narrowing of the joint space. IMPRESSION: Degenerative change as described above. Electronically Signed by iVncent Crystal MD 10/21/2018 11:49 A
== END ==
LOC: M LRY 10:14
PROVIDERS: ATTEND Nurse Practitioner Adult Health
DX: M16.0 Bilateral primary osteoarthritis of hip (principal); M51.37 Other intervertebral disc degeneration, lumbosacral region; M25.78 Osteophyte, vertebrae; M25.551 Pain in right hip; M25.552 Pain in left hip; Z95.5 Presence of coronary angioplasty implant and graft

== ENCOUNTER → 2019-07-15 | Outpatient (CLI) | payer MEDICARE ==
[~2019-07-15] MED LIST changes: -/ADVA50050 IN; -/CELE20CA OR; -/MOXI40TA PO; -/PANT40TA PO; -/PRAV20TA PO; -ACET50TA PO; +ADVA1AER2 IN; +AVEL1TAB2 PO; +CELE1CAP4 OR; -CITA20TA4 PO; +CITA20TA6 PO; +HYDR-3715 PO; +LISI20TA20 PO; +MAPA500T17 PO; -METR-201 PO; +METR-265 PO; +NICO21DI3 EXT; -NICO21PAT EXT; -NORCOTAB PO; -OMEP20CA3 PO; +OMEP20CA4 PO; +PRAV1TAB39 PO; +PRED-351 PO; -PRED10TA PO; +PROT1TAB2 PO
--- NOTE | 2019-07-15 10:27 | REP ---
Right foot series: Four views. History: Foreign body right foot. Injury stepping on glass. Evaluate for foreign body. Comparison images of the right foot are from April 27, 2013. Findings: The patient is status post surgical repair of first and fifth metatarsal bunion. There is diffuse osteopenia. There is a metallic screw in the distal fifth metatarsal. No other opaque foreign body is appreciated. No fractures seen. Impression: Status post surgical changes distal first and distal fifth metatarsal. No other opaque foreign body seen. If soft tissue foreign body strongly suspected, soft tissue ultrasound may be helpful. Electronically Signed by James Guzmán MD 07/15/2019 10:19 A
== END ==
LOC: M LRY 09:31
PROVIDERS: ATTEND Nurse Practitioner Family
DX: S90.851A Superficial foreign body, right foot, initial encounter (principal); W25.XXXA Contact with sharp glass, initial encounter; Y92.9 Unspecified place or not applicable; Z23 Encounter for immunization
CPT/HCPCS: 10120; 73630; 90471; 90715; G0463

== ENCOUNTER → 2020-11-09 | Outpatient (CLI) | payer SELFPAY ==
[~2020-11-09] MED LIST changes: -ASPI81TA85 PO; +ASPI81TA86 PO; -METF-699 PO; +METF-817 PO; +OMEP1CAP73 PO; -OMEP20CA4 PO
== END ==
LOC: M LABSMTC 10:05
PROVIDERS: ATTEND Pediatrics
DX: Z11.52 Encounter for screening for COVID-19 (principal)

== ENCOUNTER → 2022-01-29 | Outpatient (CLI) | payer MEDICARE ==
[~2022-01-29] MED LIST changes: +ECOT81TA5 PO; +FENO145T7 PO; -LISI20TA20 PO; +LISI20TA37 PO; +META0.52 PO
== END ==
LOC: M RAD 10:02
PROVIDERS: ATTEND Nurse Practitioner Family
DX: Z01.810 Encounter for preprocedural cardiovascular examination (principal)

== ENCOUNTER → 2022-02-01 | Outpatient (CLI) | payer MEDICARE | LOC: M LABSMTC 09:02 | PROVIDERS: ATTEND Anesthesiology | DX: Z01.818 Encounter for other preprocedural examination (principal); Z11.52 Encounter for screening for COVID-19 ==

== ENCOUNTER 2022-02-02 06:36 | Day surgery (SDC) | payer MEDICARE ==
[~2022-02-02] VITALS: Ht 154.9 cm; Wt 89.7 kg
[~2022-02-02 06:36] MED LIST changes: +CEFUROXIME 1MG/0.1ML INTRACAMERAL INJ As Ordered ONE; +LIDOCAINE 1% SDV 5ML VIAL As Ordered ONE; +PROPARACAINE 0.5% OPHTH SOL 15ML OD ONE
[2022-02-02] MEDS ORDERED: BSS IRR 500ML/OMIDRIA 4ML IRR BAG (OR ONLY) As Ordered ONE (06:43)
[2022-02-02] MEDS ORDERED: MIDAZOLAM INJ 2MG/2ML VIAL (J2250 PER 1MG) As Ordered ONE (07:24)
[2022-02-02] MEDS ORDERED: fentaNYL 100 MCG/2 ML INJECTION As Ordered ONE (07:24)
[2022-02-02] MEDS: TROPICAMIDE 1% OPHTH SOLN 2ML OD SCH ×2 (08:04→08:05)
[2022-02-02] MEDS: OFLOXACIN 0.3 % (OCUFLOX) OPTH SOL 5ML OD SCH ×2 (08:04→08:05)
[2022-02-02] MEDS: PHENYLEPHRINE 2.5% OPHTH SOL 2ML OD SCH ×2 (08:04→08:05)
[2022-02-02] MEDS ORDERED: INSULIN LISPRO (NovoLOG) PER UNIT SC PRN (08:05)
[2022-02-02 09:40] VITALS: BP 142/72
== END 2022-02-02 09:50 | disposition home or self-care (01) ==
LOC: M SDC 06:36
PROVIDERS: ATTEND Ophthalmology
DX: H25.11 Age-related nuclear cataract, right eye (principal); I10 Essential (primary) hypertension; E78.5 Hyperlipidemia, unspecified; E11.9 Type 2 diabetes mellitus without complications; E03.9 Hypothyroidism, unspecified; J44.9 Chronic obstructive pulmonary disease, unspecified; K57.92 Diverticulitis of intestine, part unspecified, without perforation or abscess without bleeding; F17.210 Nicotine dependence, cigarettes, uncomplicated; K21.9 Gastro-esophageal reflux disease without esophagitis; F41.9 Anxiety disorder, unspecified; F32.A Depression, unspecified; Z79.82 Long term (current) use of aspirin; Z79.02 Long term (current) use of antithrombotics/antiplatelets; Z79.51 Long term (current) use of inhaled steroids; Z85.3 Personal history of malignant neoplasm of breast; Z92.3 Personal history of irradiation
CPT/HCPCS: 66984; J0697; J1097; J2250; J3010; V2632

== ENCOUNTER → 2022-02-25 | Outpatient (CLI) | payer MEDICARE ==
[~2022-02-25] MED LIST changes: -CEFUROXIME 1MG/0.1ML INTRACAMERAL INJ As Ordered ONE; -LIDOCAINE 1% SDV 5ML VIAL As Ordered ONE; -PROPARACAINE 0.5% OPHTH SOL 15ML OD ONE
== END ==
LOC: M LABSMTC 09:25
PROVIDERS: ATTEND Anesthesiology
DX: Z01.812 Encounter for preprocedural laboratory examination (principal); Z20.822 Contact with and (suspected) exposure to COVID-19

== ENCOUNTER 2022-03-02 06:56 | Day surgery (SDC) | payer MEDICARE ==
[~2022-03-02] VITALS: Ht 154.9 cm; Wt 88.9 kg
[~2022-03-02 06:56] MED LIST changes: +CEFUROXIME 1MG/0.1ML INTRACAMERAL INJ As Ordered ONE; +LIDOCAINE 1% SDV 5ML VIAL As Ordered ONE
[2022-03-02] MEDS ORDERED: BSS IRR 500ML/OMIDRIA 4ML IRR BAG (OR ONLY) As Ordered ONE (06:57)
[2022-03-02] MEDS ORDERED: OFLOXACIN 0.3 % (OCUFLOX) OPTH SOL 5ML OS SCH (07:00)
[2022-03-02] MEDS ORDERED: PROPARACAINE 0.5% OPHTH SOL 15ML OS ONE (07:00)
[2022-03-02] MEDS ORDERED: PHENYLEPHRINE 2.5% OPHTH SOL 2ML OS SCH (07:00)
[2022-03-02] MEDS ORDERED: TROPICAMIDE 1% OPHTH SOLN 2ML OS SCH (07:00)
[2022-03-02] MEDS ORDERED: MIDAZOLAM INJ 2MG/2ML VIAL (J2250 PER 1MG) As Ordered ONE (07:12)
[2022-03-02] MEDS ORDERED: PHENYLEPHRINE HCL 10 % OPHTH. SOL 5ML As Ordered ONE (09:01)
[2022-03-02] MEDS ORDERED: PHENYLEPHRINE HCL 10 % OPHTH. SOL 5ML OS PRN (09:15)
[2022-03-02] MEDS ORDERED: hydrALAZINE 20MG/ML 1ML VIAL (J0360 PER 20MG) As Ordered ONE (09:30)
[2022-03-02 09:50] VITALS: BP 100/53
== END 2022-03-02 10:06 | disposition home or self-care (01) ==
LOC: M SDC 06:56
PROVIDERS: ATTEND Ophthalmology
DX: H25.12 Age-related nuclear cataract, left eye (principal); I10 Essential (primary) hypertension; E78.5 Hyperlipidemia, unspecified; E11.9 Type 2 diabetes mellitus without complications; E03.9 Hypothyroidism, unspecified; K57.92 Diverticulitis of intestine, part unspecified, without perforation or abscess without bleeding; K21.9 Gastro-esophageal reflux disease without esophagitis; G47.30 Sleep apnea, unspecified; J44.9 Chronic obstructive pulmonary disease, unspecified; Z85.3 Personal history of malignant neoplasm of breast; Z92.3 Personal history of irradiation; Z79.02 Long term (current) use of antithrombotics/antiplatelets; Z79.899 Other long term (current) drug therapy; Z79.51 Long term (current) use of inhaled steroids; F17.210 Nicotine dependence, cigarettes, uncomplicated
CPT/HCPCS: 66984; J0360; J0697; J1097; J2250; V2632

== ENCOUNTER → 2022-09-07 | Outpatient (REF) | payer OTHER, MEDICARE ==
[~2022-09-07] MED LIST changes: -CEFUROXIME 1MG/0.1ML INTRACAMERAL INJ As Ordered ONE; +CLOP75TA99 PO; -LIDOCAINE 1% SDV 5ML VIAL As Ordered ONE; -PLAV1TAB2 PO
[2022-09-07 17:15] LABS: BASO # 0.1 10^3/uL (0.0-0.2); EOS # 0.2 10^3/uL (0.0-0.5); EOS % 1.7 % (0.0-3.0); HEMATOCRIT 41.3 % (36.0-47.0); HEMOGLOBIN 13.5 g/dl (12.0-15.5); LYMPH # 2.2 10^3/uL (1.5-5.0); LYMPH % 24.5 % (24.0-44.0); MEAN CORPUSCULAR HEMOGLOBIN 27.4 pg (27.0-33.0); MEAN CORPUSCULAR HGB CONC 32.7 g/dl (32.0-36.5); MEAN CORPUSCULAR VOLUME 83.9 fl (80.0-96.0); MONO # 1.2 10^3/uL (0.0-0.8); MONO % 13.1 % (2.0-8.0); NEUTROPHILS # 5.2 10^3/uL (1.5-8.5); NEUTROPHILS % 59.1 % (36.0-66.0); PLATELET COUNT, AUTOMATED 411 10^3/uL (150-450); RED BLOOD COUNT 4.92 10^6/uL (4.00-5.40); WHITE BLOOD COUNT 8.9 10^3/uL (4.0-10.0)
[2022-09-07 17:40] LABS: HEMOGLOBIN A1c 6.1 % (4.0-6.0)
[2022-09-07 17:46] LABS: ALKALINE PHOSPHATASE 79 U/L (46-116); ALT/SGPT 11 U/L (7.0-40); AST/SGOT 20 U/L (<34); BILIRUBIN,TOTAL 0.6 MG/DL (0.3-1.2); BLOOD UREA NITROGEN 23 MG/DL (9-23); CARBON DIOXIDE LEVEL 24 MMOL/L (20-31); CHLORIDE LEVEL 100 MMOL/L (98-107); CHOLESTEROL LEVEL 148 MG/DL (<200); CHOLESTEROL RISK RATIO 3.27 (<5); CREATININE FOR GFR 0.67 MG/DL (0.55-1.30); FREE T4 1.24 NG/DL (0.89-1.76); GLOMERULAR FILTRATION RATE > 60.0 (>45); GLUCOSE, FASTING 90 MG/DL (74-106); HDL CHOLESTEROL 45.2 MG/DL (>40); LDL CHOLESTEROL 81.2 MG/DL (<100); NON-HDL-C 103 MG/DL; SODIUM LEVEL 133 MMOL/L (136-145); TOTAL PROTEIN 7.2 G/DL (5.7-8.2); TRIGLYCERIDES LEVEL 108 MG/DL (<150)
[2022-09-07 18:37] LABS: HEPATITIS C VIRUS ABY INDEX 0.1 INDEX (<0.8)
== END ==
LOC: M LAB REF 16:27
PROVIDERS: ATTEND Nurse Practitioner Family
DX: Z13.228 Encounter for screening for other metabolic disorders (principal); Z11.9 Encounter for screening for infectious and parasitic diseases, unspecified

== ENCOUNTER → 2023-09-19 | Outpatient (REF) | payer MEDICARE, OTHER ==
[2023-09-19 13:09] LABS: HEMATOCRIT 43.3 % (36.0-47.0); HEMOGLOBIN 14.2 g/dl (12.0-15.5); MEAN CORPUSCULAR HEMOGLOBIN 27.5 pg (27.0-33.0); MEAN CORPUSCULAR HGB CONC 32.8 g/dl (32.0-36.5); MEAN CORPUSCULAR VOLUME 83.8 fl (80.0-96.0); PLATELET COUNT, AUTOMATED 409 10^3/uL (150-450); RED BLOOD COUNT 5.17 10^6/uL (4.00-5.40); WHITE BLOOD COUNT 8.3 10^3/uL (4.0-10.0)
[2023-09-19 13:19] LABS: CHOLESTEROL RISK RATIO 3.51 (<5); HDL CHOLESTEROL 43.3 MG/DL (>40); LDL CHOLESTEROL 87.1 MG/DL (<100); NON-HDL-C 108.7 MG/DL; THYROID STIMULATING HORMONE 1.821 uIU/ML (0.55-4.78)
[2023-09-19 13:32] LABS: CREATININE, URINE 92.9 MG/DL; CREATININE,RANDOM URINE 92.9 MG/DL
[2023-09-19 13:33] LABS: MAU/CREAT RATIO 9.6 MCG/MG (0.0-30.0)
[2023-09-19 13:48] LABS: HEMOGLOBIN A1c 6.4 % (4.0-6.0)
== END ==
LOC: M LAB REF 12:13
PROVIDERS: ATTEND Nurse Practitioner Family
DX: E11.8 Type 2 diabetes mellitus with unspecified complications (principal)

== ENCOUNTER 2024-08-22 10:59 | Emergency (ER) | payer OTHER, MEDICAID ==
[~2024-08-22] VITALS: Ht 154.9 cm; Wt 82.8 kg
[~2024-08-22 10:59] MED LIST changes: +ATOR-398 PO; -LIPI80TA PO; +METF-1156 PO; -METF-817 PO; +ONDA-282 PO; -ONDA4TAB6 PO
[2024-08-22 11:02] VITALS: BP 117/59; TEMP 96.7; O2SAT 94
[2024-08-22] MEDS ORDERED: LEVO88TA3 (11:15)
[2024-08-22] MEDS ORDERED: JARD1TAB (11:15)
[2024-08-22] MEDS ORDERED: METH4PACK (11:15)
[2024-08-22] MEDS: IBUPROFEN 800 MG TAB PO ONE (12:54)
== END 2024-08-22 12:58 | disposition home or self-care (01) ==
LOC: M ED 10:59
DX: M16.11 Unilateral primary osteoarthritis, right hip (principal); E11.9 Type 2 diabetes mellitus without complications; I10 Essential (primary) hypertension; F17.200 Nicotine dependence, unspecified, uncomplicated; E03.9 Hypothyroidism, unspecified; C50.919 Malignant neoplasm of unspecified site of unspecified female breast

== ENCOUNTER → 2024-08-26 | Outpatient (CLI) | payer OTHER, MEDICAID ==
[~2024-08-26] MED LIST changes: +JARD1TAB; +LEVO88TA3; +METH4PACK
== END ==
LOC: M SOG 09:23
PROVIDERS: ATTEND Orthopaedic Surgery
DX: M54.50 Low back pain, unspecified (principal); M25.551 Pain in right hip; M47.817 Spondylosis without myelopathy or radiculopathy, lumbosacral region

== ENCOUNTER → 2024-09-24 | Outpatient (REF) | payer OTHER, MEDICAID ==
[~2024-09-24] MED LIST changes: -BAYE325T12 PO; +BAYE325T2 PO
[2024-09-24 18:36] LABS: BLOOD UREA NITROGEN 22 MG/DL (9-23); CALCIUM LEVEL 10.9 MG/DL (8.3-10.6); CARBON DIOXIDE LEVEL 26 MMOL/L (20-31); CHLORIDE LEVEL 101 MMOL/L (98-107); CHOLESTEROL LEVEL 178 MG/DL (<200); CHOLESTEROL RISK RATIO 4.59 (<5); CREATININE FOR GFR 0.71 MG/DL (0.55-1.30); GLOMERULAR FILTRATION RATE > 60.0 (>39); GLUCOSE, FASTING 108 MG/DL (74-106); HDL CHOLESTEROL 38.7 MG/DL (>40); LDL CHOLESTEROL 88.1 MG/DL (<100); NON-HDL-C 139.3 MG/DL; POTASSIUM SERUM 4.4 MMOL/L (3.5-5.1); SODIUM LEVEL 137 MMOL/L (136-145); THYROID STIMULATING HORMONE 0.788 uIU/ML (0.55-4.78); TRIGLYCERIDES LEVEL 256 MG/DL (<150)
[2024-09-24 18:53] LABS: MALB URINE SIEMENS < 3.0 MG/L
[2024-09-24 19:26] LABS: HEMOGLOBIN A1c 6.6 % (4.0-6.0)
== END ==
LOC: M LAB REF 16:13
PROVIDERS: ATTEND Nurse Practitioner Family
DX: E11.8 Type 2 diabetes mellitus with unspecified complications (principal); E03.9 Hypothyroidism, unspecified

== ENCOUNTER → 2024-10-12 | Outpatient (CLI) | payer MEDICARE, MEDICAID | LOC: M PLAIMG 09:38 | PROVIDERS: ATTEND Orthopaedic Surgery | DX: M47.27 Other spondylosis with radiculopathy, lumbosacral region (principal); M51.26 Other intervertebral disc displacement, lumbar region; M51.27 Other intervertebral disc displacement, lumbosacral region ==

== ENCOUNTER → 2024-12-18 | Outpatient (CLI) | payer OTHER, MEDICAID | LOC: M SOG 10:00 | PROVIDERS: ATTEND Orthopaedic Surgery | DX: M16.11 Unilateral primary osteoarthritis, right hip (principal); M25.551 Pain in right hip ==

== ENCOUNTER → 2024-12-22 | Outpatient (CLI) | payer OTHER, MEDICAID | LOC: M RAD 13:11 | PROVIDERS: ATTEND Nurse Practitioner Family | DX: Z87.891 Personal history of nicotine dependence (principal) ==

== ENCOUNTER → 2024-12-25 | Outpatient (CLI) | payer OTHER, MEDICAID | LOC: M RAD 08:30 | PROVIDERS: ATTEND Orthopaedic Surgery | DX: M25.551 Pain in right hip (principal); M25.451 Effusion, right hip; M25.452 Effusion, left hip; M16.0 Bilateral primary osteoarthritis of hip ==

== ENCOUNTER 2025-03-17 13:39 | Emergency (ER) | payer OTHER, MEDICAID ==
[~2025-03-17] VITALS: Ht 154.9 cm; Wt 84.1 kg
[2025-03-17 14:19] LABS: BASO # 0.1 10^3/uL (0.0-0.2); BASO % 0.9 % (0.0-1.0); EOS # 0.2 10^3/uL (0.0-0.5); EOS % 1.7 % (0.0-3.0); LYMPH # 3.1 10^3/uL (1.5-5.0); LYMPH % 30.8 % (24.0-44.0); MONO # 1.2 10^3/uL (0.0-0.8); MONO % 11.9 % (2.0-8.0); NEUTROPHILS # 5.4 10^3/uL (1.5-8.5); NEUTROPHILS % 53.7 % (36.0-66.0); PLATELET COUNT, AUTOMATED 369 10^3/uL (150-450)
[2025-03-17 14:35] LABS: INR 0.88
[2025-03-17 14:48] LABS: ALT/SGPT 25 U/L (7.0-40); AST/SGOT 24 U/L (<34); CALCIUM LEVEL 10.2 MG/DL (8.3-10.6); CARBON DIOXIDE LEVEL 21 MMOL/L (20-31); CHLORIDE LEVEL 104 MMOL/L (98-107); CK-MB VALUE MASS 1.6 NG/ML (<3.6); CREATININE FOR GFR 0.86 MG/DL (0.55-1.30); GLOMERULAR FILTRATION RATE 72.6 (>39); POTASSIUM SERUM 4.2 MMOL/L (3.5-5.1); SODIUM LEVEL 138 MMOL/L (136-145)
[2025-03-17 14:51] LABS: FREE T4 1.28 NG/DL (0.89-1.76)
[2025-03-17 15:00] LABS: CPK CREATINE PHOSPHOKINASE 110 U/L (34-145); MB/CK RELATIVE INDEX 1.45 (< OR =4)
[2025-03-17 15:45] LABS: CK-MB VALUE MASS 2.3 NG/ML (<3.6); CPK CREATINE PHOSPHOKINASE 131.0 U/L (34-145); MB/CK RELATIVE INDEX 1.75 (< OR =4)
[2025-03-17] MEDS ORDERED: ISOVUE-370 76% 100 ML VIAL As Ordered ONE (15:53)
[2025-03-17] MEDS ORDERED: DEXTROSE 50% 50 ML SYRINGE IV PRN (19:30)
[2025-03-17] MEDS ORDERED: GLUCOSE 4 GM CHEW PO PRN (19:30)
[2025-03-17] MEDS ORDERED: GLUCAGON INJ 1 MG VIAL SC PRN (19:30)
[2025-03-17] MEDS: INSULIN LISPRO (NovoLOG) PER UNIT SC SCH (21:27)
[2025-03-18] MEDS: LEVOTHYROXINE 88 MCG TABLET (0.088 MG) PO SCH (06:21)
[2025-03-18 06:38] VITALS: TEMP 96.8
[2025-03-18 06:41] VITALS: BP 143/63; O2SAT 94
[2025-03-18] MEDS ORDERED: INSULIN LISPRO (NovoLOG) PER UNIT SC SCH (07:30)
[2025-03-18] MEDS ORDERED: hydroCHLOROthiazide 25 MG TAB PO SCH (09:00)
[2025-03-18] MEDS ORDERED: ASPIRIN 81 MG ENTERIC TABLET PO SCH (09:00)
[2025-03-18] MEDS ORDERED: CLOPIDOGREL 75 MG TAB PO SCH (09:00)
== END 2025-03-18 06:57 | disposition short-term general hospital (02) ==
LOC: EDBD 13:39 → M ED 13:39
DX: I20.0 Unstable angina (principal); E78.5 Hyperlipidemia, unspecified; I10 Essential (primary) hypertension; J44.9 Chronic obstructive pulmonary disease, unspecified; F32.A Depression, unspecified; K21.9 Gastro-esophageal reflux disease without esophagitis; F41.9 Anxiety disorder, unspecified; E03.9 Hypothyroidism, unspecified; G47.33 Obstructive sleep apnea (adult) (pediatric); E11.9 Type 2 diabetes mellitus without complications; F17.200 Nicotine dependence, unspecified, uncomplicated; Z79.52 Long term (current) use of systemic steroids; Z79.82 Long term (current) use of aspirin; Z79.02 Long term (current) use of antithrombotics/antiplatelets; Z79.899 Other long term (current) drug therapy; Z79.01 Long term (current) use of anticoagulants
CPT/HCPCS: 36415; 71045; 71275; 80048; 80076; 82550; 82553; 83690; 84439; 84443; 84484; 85025; 85610; 93005; 93041; 94760; 99285; Q9967

== ENCOUNTER → 2025-08-02 | Outpatient (CLI) | payer MEDICARE, MEDICAID ==
[2025-08-02 14:01] LABS: PLATELET COUNT, AUTOMATED 482 10^3/uL (150-450)
[2025-08-02 14:31] LABS: INR 0.94
== END ==
LOC: M LAB 13:09
PROVIDERS: ATTEND Internal Medicine Critical Care Medicine
DX: R91.8 Other nonspecific abnormal finding of lung field (principal)

== ENCOUNTER → 2025-08-11 | Outpatient (CLI) | payer MEDICARE, MEDICAID ==
[~2025-08-11] MED LIST changes: +ALBU8.5H INH; +HOME MED LIST COMPLETE! XX SCH; -JARD1TAB; +JARD1TAB PO; +LIDOCAINE 1% MDV 20 ML VIAL SC ONE; +POTA-298 PO
[2025-08-11 11:55] VITALS: TEMP 97.4
[2025-08-11 15:00] VITALS: BP 109/51; O2SAT 94
== END ==
LOC: M IRPRO 11:51
PROVIDERS: ATTEND Internal Medicine Critical Care Medicine
DX: D3A.090 Benign carcinoid tumor of the bronchus and lung (principal); R91.1 Solitary pulmonary nodule

== ENCOUNTER → 2025-08-19 | Outpatient (CLI) | payer MEDICARE, MEDICAID ==
[~2025-08-19] MED LIST changes: -HOME MED LIST COMPLETE! XX SCH; -LIDOCAINE 1% MDV 20 ML VIAL SC ONE
== END ==
LOC: M PLAIMG 11:22
PROVIDERS: ATTEND Thoracic Surgery (Cardiothoracic Vascular Surgery)
DX: R91.1 Solitary pulmonary nodule (principal); I70.0 Atherosclerosis of aorta; I25.10 Atherosclerotic heart disease of native coronary artery without angina pectoris; K76.0 Fatty (change of) liver, not elsewhere classified; R16.0 Hepatomegaly, not elsewhere classified; R92.8 Other abnormal and inconclusive findings on diagnostic imaging of breast

== ENCOUNTER 2025-08-31 10:06 | Emergency (ER) | payer MEDICARE, MEDICAID ==
[~2025-08-31] VITALS: Ht 154.9 cm; Wt 84.1 kg
[2025-08-31 11:58] LABS: BASO # 0.1 10^3/uL (0.0-0.2); BASO % 0.9 % (0.0-1.0); EOS # 0.2 10^3/uL (0.0-0.5); EOS % 1.7 % (0.0-3.0); LYMPH # 2.7 10^3/uL (1.5-5.0); LYMPH % 24.7 % (24.0-44.0); MONO # 1.2 10^3/uL (0.0-0.8); MONO % 10.4 % (2.0-8.0); NEUTROPHILS # 6.9 10^3/uL (1.5-8.5); NEUTROPHILS % 61.7 % (36.0-66.0); PLATELET COUNT, AUTOMATED 453 10^3/uL (150-450)
[2025-08-31] MEDS ORDERED: ISOVUE-370 76% 100 ML VIAL As Ordered ONE (12:01)
[2025-08-31 12:20] LABS: ALT/SGPT 20 U/L (7.0-40); AST/SGOT 31 U/L (<34)
[2025-08-31 12:21] LABS: INR 0.88
[2025-08-31 13:42] VITALS: BP 116/62; TEMP 97.5; O2SAT 96
[2025-08-31] MEDS ORDERED: AMOX875T2 PO (14:27)
== END 2025-08-31 14:43 | disposition home or self-care (01) ==
LOC: M ED 10:06
DX: K57.33 Diverticulitis of large intestine without perforation or abscess with bleeding (principal); J98.11 Atelectasis; E11.9 Type 2 diabetes mellitus without complications; K76.0 Fatty (change of) liver, not elsewhere classified; I10 Essential (primary) hypertension; E78.5 Hyperlipidemia, unspecified; J44.9 Chronic obstructive pulmonary disease, unspecified; C50.919 Malignant neoplasm of unspecified site of unspecified female breast; F17.200 Nicotine dependence, unspecified, uncomplicated; Z79.52 Long term (current) use of systemic steroids; Z79.2 Long term (current) use of antibiotics; Z79.899 Other long term (current) drug therapy; Z79.02 Long term (current) use of antithrombotics/antiplatelets; Z79.82 Long term (current) use of aspirin
CPT/HCPCS: 36415; 74174; 80047; 80076; 85025; 85610; 85730; 99284; Q9967